=== PATIENT | female | born 1975 | race Caucasian/White ===

== ENCOUNTER 2017-04-16 09:00 | Outpatient (RCR) | payer BC, SELFPAY ==
--- NOTE | 2017-04-16 11:58 | BH.SGPN ---
Service Group Progress Note - Session Psychotherapy Session #1 Date Open:: 04/16/17 Time Started:: 09:04 Time Stopped:: 10:20 Targeted Problem #:: 1 Type of Group:: Process - 8 participants Goal of Group:: The goal of today's group was to check-in with client's mood, stressors, and positives, review homework and introduce topic for the day. Eye Contact:: Fair Motor Activity:: Appropriate Appearance:: Neat, Casual Speech:: Appropriate, Soft Mood:: Anxious, Depressed Affect:: Constricted Thoughts:: Linear, Logical, No evidence of hallucinations/delusions noted Staff Interventions:: Therapist used open-ended questions to elicit information about client's current stressors and mood state. Therapist was supportive by using active listening and reflection.
--- NOTE | 2017-04-16 13:50 | BH.SGPN ---
Service Group Progress Note - Session Psychotherapy Session #2 Date Open:: 04/16/17 Time Started:: 10:30 Time Stopped:: 11:20 Targeted Problem #:: 1 Type of Group:: Illness Management Goal of Group:: To increase understanding how positive and negative forces in life can impact balance in life. Eye Contact:: Good Motor Activity:: Appropriate Appearance:: Neat Speech:: Appropriate, Soft Mood:: Anxious, Depressed Affect:: Constricted Thoughts:: Linear, Logical, No evidence of hallucinations/delusions noted Staff Interventions:: Therapist facilitated group discussion about the various forces of life and helped clients connect the impact they have on balance in life. Therapist led group in an experiential activity in which group members had to work together to balance an object and move it to a designated location. Therapist utilized the activity as a tool to process the challenges connected with balancing various forces. Psychotherapy Session #3 Date Open:: 04/16/17 Time Started:: 11:30 Time Stopped:: 12:20 Targeted Problem #:: 1 Type of Group:: Functional Skills Development Goal of Group:: To identify positive and negative forces in life and identify which forces are helping stability and which forces are contributing to instability. Eye Contact:: Good Motor Activity:: Appropriate Appearance:: Neat Speech:: Appropriate Mood:: Anxious, Depressed Affect:: Constricted Thoughts:: Linear, Logical, No evidence of hallucinations/delusions noted Staff Interventions:: Therapist provided group with an example of a scenario of a person and the individual???s positive and negative forces. Therapist provided each group member with a worksheet in which they were to identify five positive and five negative forces in their life. Therapist processed the activity with the group, helping others connect the impact certain forces have on their life balance.
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
--- NOTE | 2017-04-16 17:28 | BH.MTP ---
[facility] Treatment Plan - Patient Information Program Physician:: Rebecca Calixto Primary Therapist:: Abdon Guerra - Psychiatric Diagnoses Psychiatric Diagnoses:: Bipolar I, most recent episode manic with psychotic features. Anxiety, unspecified Diagnosis Code(s):: F31.2 - Estimated LOS Estimated LOS (in weeks):: 1 Problem/Goal #1 - Problem/Goal #1 Stated Goal:: Client will increase mood stability and decrease depressive symptoms, anhedonia, and suicidal ideation through PHP Description of Barriers: stigma related to recent mental health symptoms, limited support, hx of OCD and difficulty managing irrational thoughts Functional Impact: Recently admitted to psychiatric hospital due to irrational thoughts, erratic mood, and oriental orthodox pre-occupations. - Objectives Objective #1 Stated Objective: Client will work with therapist to develop a crisis plan which includes emergency telephone numbers, 3-4 coping strategies for crisis, lists of supports, positive aspects of life, and motivations Interventions: Therapist will provide patient with safety plan worksheet and work with pt. to develop individualized plan to manage mood during crisis Discharge Criteria: will complete safety plan. Target Date: 04/20/17 Review Date: 04/20/17 Problem/Goal #2 - Problem/Goal #2 Stated Goal:: Stabilize anxiety level while increasing ability to function and decreasing ruminative and intrusive traumatic thoughts on a daily basis through PHP Description of Barriers: stigma related to recent mental health symptoms, limited support, hx of OCD and difficulty managing irrational thoughts Functional Impact: Recently admitted to psychiatric hospital due to irrational thoughts, erratic mood, and oriental orthodox pre-occupations. - Objectives Objective #1 Stated Objective: Identify at least 2-3 negative self-talk messages used to reinforce anxiety and intrusive traumatic feelings and develop 1-2 strategies to reframe or cope with negative self talk Interventions: Therapist will help client identify cognitive distortions and mistaken beliefs about self and replace with more realistic, affirmative messages. Will provide educational handouts. Other inveterventions include group counseling. Discharge Criteria: Client will have achieved this goal when can verbalize at least 2 mistaken beliefs/cognitive distortions and effectively replace those thoughts with affirmative messages Target Date: 04/20/17 Review Date: 04/20/17 Problem/Goal #3 - Problem/Goal #3 Stated Goal:: Will monitor mental status for signs of psychosis or irrtational thoughts. Description of Barriers: stigma related to recent mental health symptoms, limited support, hx of OCD and difficulty managing irrational thoughts Functional Impact: Recently admitted to psychiatric hospital due to irrational thoughts, erratic mood, and oriental orthodox pre-occupations. - Objectives Objective #1 Stated Objective: Client will not experience any bizarre thinking for a period of seven consecutive days. Interventions: Therapist will monitor and utilize reality testing to ensure client is not experiencing bizarre thoughts. Discharge Criteria: Client will have achieved this objective when reports experiencing no bizarre thoughts for seven consecutive days. Target Date: 04/20/17 Review Date: 04/20/17
--- NOTE | 2017-04-17 13:18 | PCM.HP.BLA ---
History and Physical Identifying information Patient is a 41-year-old female who presents to the behavioral medicine IOP status post inpatient psychiatric hospitalization for mood symptoms and psychosis. History is been obtained per interview with patient, discussion with staff, review of chart. Case discussed with treatment team. Chief complaint-mood symptoms, anxiety, recent psychosis History of present illness Patient is a 41-year-old female recently diagnosed with bipolar disorder by her outpatient psychiatrist Dr. Francois who presents to the behavioral medicine [facility] status post inpatient psychiatric hospitalization [facility] for mood symptoms, intrusive obsessive thoughts, and recent advent delusions. She reports 2 similar lifetime episodes likely consistent with tyree with psychotic features. The first was in February 2014 at which time she was admitted to a psychiatric hospital in [place] for increased anxiety, decreased sleep and psychotic thoughts. The second was her recent hospitalization this month for 10 days [facility]. She reports her psychiatric symptoms became worse at the end of March when she began having obsessive thoughts and decreased sleep. She notes that there was one night she did not sleep at all. She was awaking from sleep with panic attacks that she felt had a advent connection. She states that she was in and out of reality. She had advent delusions particularly regarding the end of time and the rapture. She reports that she felt somewhat impulsive and saying things to people that she would not normally say. She felt as if her inhibitions were overall decreased. She had decreased appetite. She notes these symptoms were similar to the episode in 2014. After hospitalization she reports a depressed mood with some passive thoughts of suicide which have now resolved. Suicide plan or intent. No access to firearms. has secured knives and medications. She acknowledges a long-standing history of episodic irritability and depression but frequently felt that it was within the normal range. She reports however that she feels considerably better with the Zyprexa started during her hospitalization and identifies increased mood stabilization compared to one year ago. She reports some obsessive-compulsive behaviors including checking switches and plugs 4-5 times prior to leaving the house. She does not feel that this interferes significantly with daily functioning. Admits to some intrusive thoughts about a friend who drowned her kids in May 2013 and also some intrusive thoughts about recent school shootings. She admits to some generalized ruminative anxiety regarding safety and well-being of her family. Her appetite has returned to normal. She is currently sleeping from 11 PM to 6 AM. She denies history of eating disorder. Her symptoms are complicated by Lyme's disease which can result in low energy and fatigue. Past psychiatric history Patient denies significant psychiatric problems prior to February 2014 when she was admitted in [place] for episode of decreased sleep, mood symptoms and psychosis. Her second psychiatric hospitalization was in April 2017 at [facility] for similar symptoms. An outpatient psychiatrist is Dr. Francois who is recently diagnosed with bipolar disorder. She does not currently have an individual counselor. Substance use history Patient denies smoking cigarettes use of alcohol or illicit drugs. Past medical history ACL repair Lyme's disease Breast cancer 2004-mastectomy and chemotherapy Cholecystectomy 2013 Vitamin D deficiency Denies history of seizure SAB 1 Functional medicine [facility] Allergies-lidocaine/sulfa/Vicodin Current medications Zyprexa 50 mg daily Zoloft 50 mg daily (recently decreased from 100 mg daily) Trazodone 150 mg nightly-not currently taking as feels not needed Vitamin D supplement Magnesium citrate Cortisol retirement village manager-integrative therapeutics B complex [place] vitamin Probiotic Multivitamin [place] [employer] betters Glutathione Inflammatone AL complex Family medical psychiatric history-none known Developmental social history Patient was born and raised in [place] [facility]. She is the eldest of 4 children. She grew up with her parents 2 sisters and one brother. She states growing up was fine. She states it was difficult as she had difficulty being good enough for her father. Her father coached her in basketball when she was in high school. She ultimately obtained to bachelor's degrees one in biology from [employer], and one in nursing from [employer]. She has been to her for 14 years. The marriage is good. Her is a income tax analyst and counselor. They have a son age 5-1/2. She has been a [id number] mother since he was born. Legal history none Mental status exam Vital signs reviewed per nursing database and discussed with nursing. Patient is alert and oriented in no acute distress. She is ambulatory with normal gait and station. She is casually dressed and groomed. She is cooperative with the interview. She has good eye contact. There is no psychomotor agitation or retardation. Mood is depressed. Affect congruent. Speech is clear and of regular rate and volume. Language fluent. Thought process organized. Associations logical. Thought content significant for ruminative anxiety and themes of depression. No current suicidal ideation. Feels able to maintain safety. No homicidal ideation related to detected. No current delusions. Insight to recent advent delusions. Immediate recent and remote memory grossly intact. Attention and concentration are fair to good. Estimated intelligence and fund of knowledge average. Judgment and insight are fair. Physical exam recently conducted per emergency department visit. Records requested and will be reviewed. Labs and testing Records will be requested from recent inpatient hospitalization. Lab work will be requested from recent inpatient hospitalization. Further lab work will be obtained as needed. Diagnosis Bipolar 1 most recent episode manic with psychotic features F31.2 Anxiety unspecified Rule out PTSD Lyme's disease Status post breast cancer Vitamin D deficiency Plan Admit to PHP as the structured setting is necessary to prevent decompensation. Risks benefits alternatives of medications discussed with patient. Patient acknowledges understanding. Continue Zyprexa 15 mg nightly. Continue reduce Zoloft at 50 mg p.o. nightly. Recommend reading calm seas. Continue follow-up with Dr. Francois. Encouraged to establish outpatient counselor. Patient acknowledges understanding and is in agreement with plan. She feels able to maintain safety. She agrees to seek help or emergency care if feeling unsafe to self or others.
--- NOTE | 2017-04-17 14:15 | HP.PCM_ITS ---
History and Physical Identifying information Patient is a 41-year-old female who presents to the behavioral medicine IOP status post inpatient psychiatric hospitalization for mood symptoms and psychosis. History is been obtained per interview with patient, discussion with staff, review of chart. Case discussed with treatment team. Chief complaint-mood symptoms, anxiety, recent psychosis History of present illness Patient is a 41-year-old female recently diagnosed with bipolar disorder by her outpatient psychiatrist Dr. Francois who presents to the behavioral medicine [facility] status post inpatient psychiatric hospitalization [facility] for mood symptoms, intrusive obsessive thoughts, and recent jain delusions. She reports 2 similar lifetime episodes likely consistent with tyree with psychotic features. The first was in February 2014 at which time she was admitted to a psychiatric hospital in [place] for increased anxiety, decreased sleep and psychotic thoughts. The second was her recent hospitalization this month for 10 days [facility]. She reports her psychiatric symptoms became worse at the end of March when she began having obsessive thoughts and decreased sleep. She notes that there was one night she did not sleep at all. She was awaking from sleep with panic attacks that she felt had a jain connection. She states that she was in and out of reality . She had jain delusions particularly regarding the end of time and the rapture. She reports that she felt somewhat impulsive and saying things to people that she would not normally say. She felt as if her inhibitions were overall decreased. She had decreased appetite. She notes these symptoms were similar to the episode in 2014. After hospitalization she reports a depressed mood with some passive thoughts of suicide which have now resolved. Suicide plan or intent. No access to firearms. has secured knives and medications. She acknowledges a long-standing history of episodic irritability and depression but frequently felt that it was within the normal range. She reports however that she feels considerably better with the Zyprexa started during her hospitalization and identifies increased mood stabilization compared to one year ago. She reports some obsessive-compulsive behaviors including checking switches and plugs 4-5 times prior to leaving the house. She does not feel that this interferes significantly with daily functioning. Admits to some intrusive thoughts about a friend who drowned her kids in May 2013 and also some intrusive thoughts about recent school shootings. She admits to some generalized ruminative anxiety regarding safety and well-being of her family. Her appetite has returned to normal. She is currently sleeping from 11 PM to 6 AM. She denies history of eating disorder. Her symptoms are complicated by Lyme's disease which can result in low energy and fatigue. Past psychiatric history Patient denies significant psychiatric problems prior to February 2014 when she was admitted in [place] for episode of decreased sleep, mood symptoms and psychosis. Her second psychiatric hospitalization was in April 2017 at [facility] for similar symptoms. An outpatient psychiatrist is Dr. Francois who is recently diagnosed with bipolar disorder. She does not currently have an individual counselor. Substance use history Patient denies smoking cigarettes use of alcohol or illicit drugs. 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 She is the eldest of 4 children. She grew up with her parents 2 sisters and one brother. She states growing up was fine. She states it was difficult as she had difficulty being good enough for her father. Her father coached her in basketball when she was in high school. She ultimately obtained to bachelor's degrees one in biology from [employer], and one in nursing from [employer]. She has been to her for 14 years. The marriage is good. Her is a architectural intern and counselor. They have a son age 5-1/2. She has been a [id number] mother since he was born. Legal history none Mental status exam Vital signs reviewed per nursing database and discussed with nursing. Patient is alert and oriented in no acute distress. She is ambulatory with normal gait and station. She is casually dressed and groomed. She is cooperative with the interview. She has good eye contact. There is no psychomotor agitation or retardation. Mood is depressed. Affect congruent. Speech is clear and of regular rate and volume. Language fluent. Thought process organized. Associations logical. Thought content significant for ruminative anxiety and themes of depression. No current suicidal ideation. Feels able to maintain safety. No homicidal ideation related to detected. No current delusions. Insight to recent jain delusions. Immediate recent and remote memory grossly intact. Attention and concentration are fair to good. Estimated intelligence and fund of knowledge average. Judgment and insight are fair. Physical exam recently conducted per emergency department visit. Records requested and will be reviewed. Labs and testing Records will be requested from recent inpatient hospitalization. Lab work will be requested from recent inpatient hospitalization. Further lab work will be obtained as needed. Diagnosis Bipolar 1 most recent episode manic with psychotic features F31.2 Anxiety unspecified Rule out PTSD Lyme's disease Status post breast cancer Vitamin D deficiency Plan Admit to PHP as the structured setting is necessary to prevent decompensation. Risks benefits alternatives of medications discussed with patient. Patient acknowledges understanding. Continue Zyprexa 15 mg nightly. Continue reduce Zoloft at 50 mg p.o. nightly. Recommend reading calm seas. Continue follow-up with Dr. Francois. Encouraged to establish outpatient counselor. Patient acknowledges understanding and is in agreement with plan. She feels able to maintain safety. She agrees to seek help or emergency care if feeling unsafe to self or others.
--- NOTE | 2017-04-17 14:16 | BH.DR.ITP ---
Initial Treatment Plan - Patient Information Visit Information: ADMISSION DATE: EXPECTED LOS: 4-6 weeks Diagnoses:: Bipolar disorder F 31.2 - Problems/Symptoms Problem #1:: Mood instability Symptom:: Yenifer, depression, biologic disruption of sleep and appetite, suicidal ideation Problem #2:: Anxiety Symptom:: rumination, panic Problem #3:: Psychosis Symptom:: Recent oriental orthodox delusions
--- NOTE | 2017-04-17 14:36 | BH.COMM ---
Communication Note - Communication with Client Communication Note: Pt was meeting with psychiatrist till 1300 and was not completed with lunch till 1330. Due to running late we were not able to meet for individual session due to time constraits on both of our schedules. We met very briefly to review homework assignment from yesterday, check in on MH status, and provide her with some homework for tonight. Both agreed to follow up tomorrow.
--- NOTE | 2017-04-17 14:49 | BH.COMM_ITS ---
Communication Note - Communication with Client Communication Note: Pt was meeting with psychiatrist till 1300 and was not completed with lunch till 1330. Due to running late we were not able to meet for individual session due to time constraits on both of our schedules. We met very briefly to review homework assignment from yesterday, check in on MH status , and provide her with some homework for tonight. Both agreed to follow up tomorrow.
--- NOTE | 2017-04-17 15:27 | BH.SGPN ---
Service Group Progress Note - Session Psychotherapy Session #2 Date Open:: 04/17/17 - 10 participants Time Started:: 10:21 Time Stopped:: 11:12 Targeted Problem #:: 1 Type of Group:: Illness Management Goal of Group:: To increase understanding of what strengths are and identify individual strengths. Client Response/Progress/Benefit:: Client responded well to session, active participant. Client connected with the quote sharing, if you want to make big changes it takes time and patience. Client agreed with peers that strengths are important positive qualities to recognize, but people often do not have awareness of their strengths. Client identified her personal strengths as having wisdom, problem-solving skills, being mindful, persistent, honest, and good sense of humor. Client stated when she recognizes these strengths, it benefits her mental health. Client appeared to benefit from identifying her personal strengths and how they help client overcome difficult times in life. Progress noted as shown by client's improved mood, but can continue to benefit from challenging negative thoughts. Eye Contact:: Good Motor Activity:: Appropriate Appearance:: Neat Speech:: Soft Mood:: Anxious Affect:: Constricted Thoughts:: Linear, No evidence of hallucinations/delusions noted Staff Interventions:: Therapist facilitated discussion about what are strengths and assisted group members in identifying examples of strengths. Therapist led an activity in which group members were given the opportunity to identify five personal strengths. Therapist assisted clients in connecting the importance of recognizing personal strengths. Psychotherapy Session #3 Date Open:: 04/17/17 - 9 participants Time Started:: 11:20 Time Stopped:: 12:15 Targeted Problem #:: 1 Type of Group:: Functional Skills Development Goal of Group:: To identify what gets in their way of recognizing and utilizing their strengths and identifying ways to make strengths easier to access. Client Response/Progress/Benefit:: Client responded well to session, active group member. Client reported we don't always have awareness of strengths especially, when one is anxious or depressed. Client shared self-doubt, negative thinking, and negative people can keep a person from acknowledging their strengths. Client helped the group develop strategies to combat barriers that making accessing strengths. harder. The strategies included: challenging negative thoughts, journaling progress, and using self-care. Client appeared to benefit from gaining awareness of the barriers that keep client from using her strengths and how to overcome those barriers. Client progressing as evidenced by her implementation of healthy coping skills, but continues to struggle with maintaining mood stability. Eye Contact:: Good Motor Activity:: Appropriate Appearance:: Neat Speech:: Soft Mood:: Anxious Affect:: Constricted Thoughts:: Linear, No evidence of hallucinations/delusions noted Staff Interventions:: Therapist utilized an activity as a tool in helping clients recognize the things that can get in their way from utilizing their strengths and identify alternative strategies to overcome those barriers. Therapist processed the activity, helping others connect challenges that keep them from recognizing and using their strengths. Therapist helped clients connect the importance of utilizing supports to build personal strengths and ways to challenge negative thoughts that prevent clients from acknowledging their strengths. Therapist provided support by using active listening and providing feedback.
--- NOTE | 2017-04-18 10:26 | BH.SGPN ---
Service Group Progress Note - Session Psychotherapy Session #1 Date Open:: 04/18/17 - 5 participants Time Started:: 09:05 Time Stopped:: 10:05 Targeted Problem #:: 1 Type of Group:: Process Goal of Group:: The goal of today's group was to check-in with client's mood, stressors, and positives, review homework and introduce topic for the day. Client Response/Progress/Benefit:: Client responded well to session, providing supportive statements to peers. Client reports feeling more positive today as client shared she has been trying to accept what is in her control and choose my emotions. Client stated she is getting used to the routine of coming to PHP every day which is helping client as well. Client reported she is struggling with finding time to spend with her as client shared I get tired before everyone else, so we don't really have family time as much. Client appeared to benefit from seeing a benefit from incorporating healthy coping skills such as thought challenge. Client seems to be progressing with implementing healthy coping strategies, but can continue to benefit for communicating mental health needs with her supports and maintaining self-care. Eye Contact:: Good Motor Activity:: Appropriate Appearance:: Neat Speech:: Soft Mood:: Anxious Affect:: Constricted Thoughts:: Linear, No evidence of hallucinations/delusions noted Staff Interventions:: Therapist used open-ended questions to elicit information about client's current stressors and mood state. Therapist was supportive by using active listening and reflection.
--- NOTE | 2017-04-18 12:15 | BH.SGPN ---
Service Group Progress Note - Session Psychotherapy Session #1 Date Open:: 04/18/17 Time Started:: 09:06 Time Stopped:: 10:15 Targeted Problem #:: 1 Type of Group:: Process - 9 participants Goal of Group:: The goal of group was to check-in on clients mood, stressors and positives and introduce the topic of the day. Client Response/Progress/Benefit:: Client an active participant and willing to engage in group discussion. She relfected upon her first day in PHP program, indicating that it had gone okay but that she had struggled with feeling guilty for being away from her 5 y/o son. Client went on to explain that his grandparents have been caring for him while client was in the hospital and during the PHP program. She discussed that they have been struggling to re-connect since she returned from inpatient hospitalization last week. Client further explained she is finding herself becoming less patient with his temper tantrums but is trying to remember to apply the calming skills learned during hospitalization. She reported I'm just taking it one day at a time and indicates that this has been helpful in working with her son as well as decreasing her anxiety related to maintaining the house. Client was receptive to feedback and appeared to benefit from fellow participants expressing similar struggles regarding parenting and managing mental health symptoms. Recommended continued PHP to further improve internal skills such as positive self talk, reframing, and setting small goals, as well as to maintain current stability. Eye Contact:: Fair Motor Activity:: Appropriate Appearance:: Casual Speech:: Appropriate Mood:: Anxious, Dysthymic Affect:: Constricted Thoughts:: Linear, Logical, No evidence of hallucinations/delusions noted Staff Interventions:: Therapist used open-ended questions to elicit information about client's current stressors and mood state. Therapist was supportive by using active listening and reflection. Therapist utilized a quote related to anger as an aid in introducing the topic of the day and facilitated discussion of quote.
--- NOTE | 2017-04-18 12:46 | BH.SGPN_ITS ---
Service Group Progress Note - Session Psychotherapy Session #1 Date Open:: 04/18/17 Time Started:: 09:06 Time Stopped:: 10:15 Targeted Problem #:: 1 Type of Group:: Process - 9 participants Goal of Group:: The goal of group was to check-in on client?s mood, stressors and positives and introduce the topic of the day. Client Response/Progress/Benefit:: Client an active participant and willing to engage in group discussion. She relfected upon her first day in PHP program, indicating that it had gone okay but that she had struggled with feeling guilty for being away from her 5 y/o son. Client went on to explain that his grandparents have been caring for him while client was in the hospital and during the PHP program. She discussed that they have been struggling to re- connect since she returned from inpatient hospitalization last week. Client further explained she is finding herself becoming less patient with his temper tantrums but is trying to remember to apply the calming skills learned during hospitalization. She reported I'm just taking it one day at a time and indicates that this has been helpful in working with her son as well as decreasing her anxiety related to maintaining the house. Client was receptive to feedback and appeared to benefit from fellow participants expressing similar struggles regarding parenting and managing mental health symptoms. Recommended continued PHP to further improve internal skills such as positive self talk, reframing, and setting small goals, as well as to maintain current stability. Eye Contact:: Fair Motor Activity:: Appropriate Appearance:: Casual Speech:: Appropriate Mood:: Anxious, Dysthymic Affect:: Constricted Thoughts:: Linear, Logical, No evidence of hallucinations/delusions noted Staff Interventions:: Therapist used open-ended questions to elicit information about client's current stressors and mood state. Therapist was supportive by using active listening and reflection. Therapist utilized a quote related to anger as an aid in introducing the topic of the day and facilitated discussion of quote.
--- NOTE | 2017-04-18 13:52 | BH.SGPN ---
Service Group Progress Note - Session Psychotherapy Session #2 Date Open:: 04/18/17 Time Started:: 10:15 Time Stopped:: 11:10 Targeted Problem #:: 1 Type of Group:: Illness Management Goal of Group:: The goal of group was to increase understanding of coping strategies and impact problems have on self. Another goal was to practice utilizing coping skills in the moment. Eye Contact:: Good Motor Activity:: Appropriate Speech:: Appropriate Mood:: Anxious Affect:: Constricted Thoughts:: Linear, Logical, No evidence of hallucinations/delusions noted Staff Interventions:: Therapist facilitated the group discussion about coping strategies. Therapist group and activity challenge them to work together in utilize healthy coping skills in the moment. Therapist utilized the activity as a tool to process what it feels like when dealing with problems and what strategies they used to cope throughout activity. Psychotherapy Session #3 Date Open:: 04/18/17 Time Started:: 11:20 Time Stopped:: 12:15 Targeted Problem #:: 1 Type of Group:: Functional Skills Development Goal of Group:: The goal of group was to increase client???s ability to recognize the different between an internal and external coping strategy. Another goal was to increase client???s self-awareness on their use of coping strategies and increase repertoire of healthy coping strategies. Eye Contact:: Good Motor Activity:: Appropriate Appearance:: Casual Speech:: Appropriate Mood:: Anxious Affect:: Constricted Thoughts:: Linear, Logical, No evidence of hallucinations/delusions noted Staff Interventions:: Therapist facilitated discussion about the different types of coping skills. Therapist led group in an activity in which group members were asked to brainstorm coping strategies that fit in each coping skill category. Therapist led a discussion about whether the coping strategies identified were healthy or unhealthy.
--- NOTE | 2017-04-18 16:54 | BH.MDN_ITS ---
Multi-Disciplinary Note - Note 60-min Individual Time Started:: 12:30 Date: 04/18/17 Purpose of session/treatment goals addressed:: Used the session to review progress in PHP. Addressed treatment goals 1 and 2. Eye Contact:: Fair Motor Activity:: Appropriate Appearance:: Neat Speech:: Appropriate Mood:: Anxious, Depressed Affect:: Congruent Thoughts:: Linear, Logical, No evidence of hallucinations/delusions noted Staff Interventions:: Provided education on cognitive distortions, self-care, and reviewed thought record. Client Response:: Pt reports that she feels like she is continuing to improve. Reports increased confidence in herself and her ability to manage her thoughts and mood. Also reports that she is getting more accustomed to the PHP program and her peers. Reports that she would like to develop new habits which include more positive self-talk, being able to recognize and manage irrational thoughts , and increase her coping skills for anger and irritability. Discussed negative thoughts which effect her daily functioning. Showed insight into setting boundaries with child and expectation with spouse. She was attentive during education on cognitive distortions and self-care. Reviewed her thought record. Risks/Concerns:: No risks or concerns noted. Denies any suicidal thoughts or thoughts of hurting others. States that she feels more in control of her thoughts. Progress Toward Goals/Plan:: Pt reports progress in the past few days. Reports decrease in intensiy, frequency, and duration of anxiety, depression, negative thoughts, and intrusive thoughts. Appears motivated during groups and is completing all assigned tasks. Plan is to continue with PHP to maintain safety, prevent decompensation, and stabilize mood. Time Stopped:: 13:30
--- NOTE | 2017-04-19 11:21 | BH.SGPN ---
Service Group Progress Note - Session Psychotherapy Session #1 Date Open:: 04/19/17 Time Started:: 09:06 Time Stopped:: 10:20 Targeted Problem #:: 1 Type of Group:: Process - 9 participants Goal of Group:: The goal of today's group was to check-in with client's mood, stressors, and positives, review homework and introduce topic for the day. Staff Interventions:: Therapist used open-ended questions to elicit information about client's current stressors and mood state. Therapist was supportive by using active listening and reflection.
--- NOTE | 2017-04-19 13:36 | BH.SGPN_ITS ---
Service Group Progress Note - Session Psychotherapy Session #2 Date Open:: 04/19/17 - 10 group members Time Started:: 10:25 Time Stopped:: 11:15 Targeted Problem #:: 1 Type of Group:: Illness Management Goal of Group:: To increase understanding of importance of boundaries and the different ways of setting boundaries (permeable, rigid, and flexible). Client Response/Progress/Benefit:: Client responded well to session, providing input to discussion. Client appeared to connect with the quote,sharing ?setting boundaries helps you learn and grow.? Client helped the group identify the characteristics of each boundary type as well as the pros and cons. Client shared rigid boundaries protects one from toxic people, but it also keeps positive supports away. Client stated being flexible is important as it allows a person to gain new ideas and supports without compromising one?s beliefs. Client appeared to benefit from learning the importance of boundary setting. Progress noted in client?s increased awareness and communication in group, but can continue to benefit from challenging cognitive distortions. Eye Contact:: Good Motor Activity:: Appropriate Appearance:: Neat Speech:: Appropriate Mood:: Anxious Affect:: Flat Thoughts:: Linear, No evidence of hallucinations/delusions noted Staff Interventions:: Therapist facilitated group discussion about defining boundaries. Therapist led discussion about importance of boundaries, assisting group members with identifying the impact of healthy and unhealthy boundaries. Therapist educated the group about the three different ways of setting boundaries and led discussion about each one. Therapist assisted clients with identifying the costs and benefits to the three different styles of boundary setting and how each style can impact mental health as well as relationships. Psychotherapy Session #3 Date Open:: 04/19/17 - 9 group members Time Started:: 11:25 Time Stopped:: 12:20 Targeted Problem #:: 1 Type of Group:: Functional Skills Development Goal of Group:: Increase awareness of current boundary style, identifying impact current way of setting boundaries has on mental health as well as relationships. Client Response/Progress/Benefit:: Client responded well to session, participating when prompted. Client created a visual representation of her boundaries, sharing ?my castle has a lot of windows, but only one door.? Client stated she feels comfortable with listening to others thoughts and emotions, but is closed off when it comes to sharing hers. Client reported she is rigid with her emotions as client does not trust others easily and client does not like to feel not in control. Client stated she would like to become more flexible with her emotional boundaries, especially with communicating her needs. Client appeared to benefit from increasing awareness of how rigid boundaries impact client's overall well-being. Client to continue PHP to prevent decompensation and promote emotional regulation. Eye Contact:: Good Motor Activity:: Appropriate Appearance:: Neat Speech:: Appropriate Mood:: Anxious Affect:: Flat Thoughts:: Linear, No evidence of hallucinations/delusions noted Staff Interventions:: Therapist provided the group member with a wide array of supplies, asking each group member to create a castle that would represent the boundaries they currently have in place. The expressive activity was used as a tool to help increase client?s self-awareness of their boundaries. Therapist processed each group member?s castle, inquiring what style the group member currently uses most frequently and how current boundary style impacts his/her mental health and relationships. Therapist provided support by using reflective listening and giving feedback.
--- NOTE | 2017-04-19 14:48 | BH.MDN ---
Multi-Disciplinary Note - Note 60-min Individual Time Started:: 12:15 Date: 04/19/17 Purpose of session/treatment goals addressed:: Review progress in PHP program. Addressed treatment plan goals 1,2 and 3. Eye Contact:: Fair Motor Activity:: Appropriate Appearance:: Neat Speech:: Appropriate Mood:: Anxious Affect:: Congruent Thoughts:: Linear, Logical, No evidence of hallucinations/delusions noted Staff Interventions:: Utilized NC techniques to encourage change and decrease stigma related to MH symptoms. Gave pt additional educational handouts on self-talk and developing crisis plan. Client Response:: Pt continues to report that she is managing her thoughts and mood well. Denies any intrusive thoughts about hurting herself or others. 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 SHe is continuing to follow through with thought record and reviewing cognitive distortions. She is able to identify some through reframing and coping skills to manage anxiety, depression, and instrusive thoughts. Able to identify 3 negative self-talk messages through her thought record. Was also able to reframe thoughts with some guidance from therapist. Risks/Concerns:: No risks or concerns noted. Progress Toward Goals/Plan:: Continues to make progress. No signs of psychosis or confucianist pre-occupation noted in individual or group counseling sessions. Denies any instrusive thoughts about hurting self or others. No psychosis noted in past 6 days. She has met treatment goal 2 and 3. We worked this session on developing her individualized crisis plan for treatment goal 1. Overall reports decreased anxiety and depressive symptoms. Reports decrease in intensitity, frequency, and duration of intrusive thoughts and feels that her mood is stable. More in control of thoughts and actions. Stigma associated with recent episode is decreasing as well. Will continue with PHP tomorrow. Will discuss progress with treatment team with tenative plan to step down to IOP after tomorrow.
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
--- NOTE | 2017-04-20 14:40 | BH.COMM ---
Communication Note - Communication with Client Communication Note: Pt had to leave PHP early today as she had a medical appointment.
--- NOTE | 2017-04-20 14:42 | BH.SGPN_ITS ---
Service Group Progress Note - Session Psychotherapy Session #2 Date Open:: 04/20/17 Time Started:: 10:20 Time Stopped:: 11:10 Targeted Problem #:: 1 Type of Group:: Illness Management - 7 participants Goal of Group:: To increase understanding of fear and explore the negative impact fear of failure can have on mental health and decision making. Client Response/Progress/Benefit:: Client responded positively to session and indicated connecting with the topic for today's group, Fear of Failure. She was actively engaged in both the discussion and activity portions of the group. Client reflected with the group upon the potential mental health impacts fear of failure may have as well as what defines failure. She discussed that for her failure means falling short of the expectations she has set for herself. She appeared to benefit from participating in the group activity as this had challenged her to face potential failure at various points throughout. Client displayed progress in her ability to openly engage with the group as well as begin to apply treatment content discussed to her own experiences AEB reflecting upon how not meeting her own expectations often causes her increased irritability and anxiety. Client recommended remaining in IOP program to continue to challenge use of minimization and distorted thinking patterns regarding her perception and expectations of self. Eye Contact:: Good Motor Activity:: Appropriate Appearance:: Casual Speech:: Appropriate Mood:: Euthymic, Anxious Affect:: Congruent Thoughts:: Linear, Logical, No evidence of hallucinations/delusions noted Staff Interventions:: Therapist facilitated discussion about fear and impact fear of failure can have. Therapist led group in an experiential activity in which client?s would fail numerous times throughout, but were given the opportunity to try again. Therapist led the processing of the activity and assisted clients with connecting how fear of failure impacted their decision making during the activity.
--- NOTE | 2017-04-23 12:25 | BH.DS_ITS ---
Discharge Summary - Demographics Date of Admission:: 04/16/17 Discharge Date: 04/20/17 Presenting Problems at Admission:: Pt is a 44 year old female with a history of Bipolar. Recent psychiatric admission to [facility]. Discharge Diagnoses:: Bipolar 1 with psychotic features F31.2. Anxiety, unspecified Reason for Discharge:: No longer meets criteria for [facility] level of care. Completed treatment plan goals and reports decrease in severity, duration, and frequency of instrusive thoughts, SI, and anxiety. - Treatment Progress During Treatment & Response: Continues to make progress. Pt appears motivated and has been consistenly attending and participating in treatment. No signs of psychosis or religion pre-occupation noted in individual or group counseling sessions during PHP. Denies any instrusive thoughts about hurting self or others. No psychosis noted in past 6 days. She has met treatment goal 2 and 3. Has also worked on individualized crisis plan. Overall reports decreased anxiety and depressive symptoms. Reports decrease in intensitity, frequency, and duration of intrusive thoughts and feels that her mood is stable. More in control of thoughts and actions. Stigma associated with recent episode is decreasing as well. Discussed progress with pt and treatment team with plan to step down to [facility] next week. Issues Still to be Addressed:: Continues to report obessive and instrusive thoughts. Continues to report anxiety and depressive symptoms as well as some fear associated with relapse back into psychosis. Discharge Recommendations/Instructions:: Recommended to step down to [facility] level of care to maintain gains, prevent decompensation, and further stabilize mood. Pt reports clearer thoughts and increased confidence in coping however would benefit from continued support, increased coping skills, and medication management. Discharge Handout: Complete Discharge Handout with client on aftercare options and continuity of care.
--- NOTE | 2017-04-30 10:25 | BH.SGPN_ITS ---
Service Group Progress Note - Session Psychotherapy Session #1 Date Open:: 04/17/17 Time Started:: 09:06 Time Stopped:: 10:15 Targeted Problem #:: 1 Type of Group:: Process - 9 participants Goal of Group:: The goal of today's group was to check-in with client's mood, stressors, and positives, review homework and introduce topic for the day. Client Response/Progress/Benefit:: Client second day in PHP program and still adjusting to the dynamics of the group. She was receptive of the support and encouragement provided by the group and appeared to respond well to session. Client openly discussed struggling to maintain focus as her mind keeps wandering back to thoughts of what she needs to be getting done back at home. Client went on to share that she has been experiencing some difficulty in re- connecting with her 3 year-old son since she discharged from an inpatient unit earlier last week. She discussed frustration with his recent increase in stubbornness. Client appeared to benefit from the supportive feedback provided by several participants whom could relate as they have small children as well. Client identified trying to take things one step at a time and shared feeling as though she is beginning to return to her baseline prior to the events resulting in hospitalization. Eye Contact:: Fair Motor Activity:: Appropriate Appearance:: Casual Speech:: Appropriate Mood:: Euthymic, Anxious Affect:: Congruent Thoughts:: Linear, Logical, No evidence of hallucinations/delusions noted Staff Interventions:: Therapist used open-ended questions to elicit information about client's current stressors and mood state. Therapist was supportive by using active listening and reflection.
== END 2017-04-20 14:00 | disposition home or self-care (01) ==
LOC: BHPHP 09:00
PROVIDERS: Visit Provider Psychiatry & Neurology Psychiatry
DX: F31.2 Bipolar disorder, current episode manic severe with psychotic features (principal); F41.9 Anxiety disorder, unspecified; A69.20 Lyme disease, unspecified; E55.9 Vitamin D deficiency, unspecified; Z85.3 Personal history of malignant neoplasm of breast; Z79.899 Other long term (current) drug therapy
CPT/HCPCS: H0035; 90834; 90837; G0410

== ENCOUNTER 2017-04-24 09:00 | Outpatient (RCR) | payer BC, SELFPAY ==
--- NOTE | 2017-04-24 14:52 | BH.SGPN ---
Service Group Progress Note - Session Psychotherapy Session #1 Date Open:: 04/24/17 Time Started:: 09:05 Time Stopped:: 10:00 Type of Group:: Process - 8 group members Goal of Group:: The goal of today's group was to check-in with client's mood, stressors, and positives, review homework and introduce topic for the day. Client Response/Progress/Benefit:: Pt participate only when prompted however was attentive. Emotion for today was confident. Shared with the group that her weekend went well. She stated that she had a panic attack last evening with instrusive thoughts and fear related to having a relapse (psychosis). She stated that she was really fearful. She utilized her thought reframing skills as beleives that she was able to manage the panic attack and feel more in control. Progress noted as she was able to manage overwhelming thoughts. Benefited from group support and encouragment. Plan is to continue in IOP to prevent decompensation, decrease instrusive thoughts, and decrease anxiety. Eye Contact:: Fair Motor Activity:: Appropriate Appearance:: Neat Speech:: Appropriate Mood:: Euthymic Affect:: Full Thoughts:: Linear, Logical, No evidence of hallucinations/delusions noted Staff Interventions:: Therapist used open-ended questions to elicit information about client's current stressors and mood state. Therapist was supportive by using active listening and reflection.
--- NOTE | 2017-04-24 16:10 | BH.SGPN_ITS ---
Service Group Progress Note - Session Psychotherapy Session #2 Date Open:: 04/24/17 Time Started:: 10:15 Time Stopped:: 11:08 Targeted Problem #:: 1 Type of Group:: Illness Management - 8 group members Goal of Group:: To increase understanding of what conflict is and increase awareness of how group members manage conflict. Client Response/Progress/Benefit:: Client contributed positively to discussion and listened attentively to others. Client that oftentimes when she thinks about conflict she thinks about negativity and aggressiveness, but is able to see conflict can be different based on how one gera with the situation. client reported she uses all four conflict resolution styles, it just depends on the situation and person. Recognized she tends to be more competitive when in conflict with her , which results in him not sharing how he feels because doesn't want to deal with her aggressiveness. Client seemed to benefit from increasing awarness of how her conflict resolution style can impact her. Eye Contact:: Good Motor Activity:: Appropriate Appearance:: Neat Speech:: Appropriate Mood:: Euthymic, Anxious Affect:: Congruent Thoughts:: Linear, Logical, No evidence of hallucinations/delusions noted Staff Interventions:: Therapist facilitated discussion about conflict and conflict resolution. Therapist led group in an activity in which group members had to identify their initial response to conflict and how their response changes based on different situations. Therapist assisted clients with connecting the impact current conflict style has on their mental health. Psychotherapy Session #3 Date Open:: 04/24/17 Time Started:: 11:18 Time Stopped:: 12:15 Targeted Problem #:: 1 Type of Group:: Functional Skills Development - 9 group members Goal of Group:: To identify what contributes positively and negatively to conflict and appropriate ways to manage conflict with others. Client Response/Progress/Benefit:: Client contributed to discussion and listened attentively to others. Client worked cooperatively with others during challenge activity, making effort to be collaborate with peers. Client identified she would use today's topic in her daily life by: picking her battles , being willing to forgive, being will to compromise, knowing when to walk away and being mindful of her reaction during conflict. Client seemed to benefit form learning various strategies for resolving conflict in healthy manner. Eye Contact:: Good Motor Activity:: Appropriate Appearance:: Neat Speech:: Appropriate Mood:: Euthymic, Anxious Affect:: Congruent Thoughts:: Linear, Logical, No evidence of hallucinations/delusions noted Staff Interventions:: Therapist facilitated group activity in which group members were provided with materials and had to eliminate certain items with consensus from group. Therapist processed activity, helping clients connect throughout activity strategies each person used to manage conflict. Therapist led discussion about what contributes to conflict in a positive or negative manner. Therapist facilitated discussion about conflict resolution strategies and provided group member with a handout about effective ways to manage conflict.
--- NOTE | 2017-04-25 08:39 | BH.COMM ---
Communication Note - Communication with Client Communication Note: called off due to weather
--- NOTE | 2017-04-26 15:44 | BH.SGPN ---
Service Group Progress Note - Session Psychotherapy Session #1 Date Open:: 04/26/17 Time Started:: 09:10 Time Stopped:: 10:00 Type of Group:: Process - 6 group members Goal of Group:: The goal of today's group was to check-in with client's mood, stressors, and positives, review homework and introduce topic for the day. Client Response/Progress/Benefit:: Pt was attentive and spoke when prompted. Emotion for the today is anxious. Shared with the group that she had met with her outpatient psychiatrist yesterday and they stopped her Zoloft. Reports some fear associated with this. Concerns that she will relapse of that stopping this medication will increase her thoughts, depression, and anxiety. She was able to verbalize the reason her psychiatrist stopped the medication (bipolar dx) and the psychiatrist's rationale. Admited that this is an example of how her thinking can get overwhelming and obessive. Group provided support. Displaying cognitive distortions and a what if thinking which is leading to ruminations. Will continue with IOP to prevent furhter decompensation, improve functioning, and learn ways to manage instrusive thoughts. Eye Contact:: Good Motor Activity:: Appropriate Appearance:: Casual Speech:: Appropriate Mood:: Anxious Affect:: Congruent Thoughts:: Linear, Logical, No evidence of hallucinations/delusions noted Staff Interventions:: Therapist used open-ended questions to elicit information about client's current stressors and mood state. Therapist was supportive by using active listening and reflection.
--- NOTE | 2017-04-26 16:36 | BH.SGPN_ITS ---
Service Group Progress Note - Session Psychotherapy Session #2 Date Open:: 04/26/17 Time Started:: 10:13 Time Stopped:: 11:13 Targeted Problem #:: 1 Type of Group:: Illness Management - 7 participants Goal of Group:: To increase understanding of a crisis and improve client?s awareness of personal warning signs before crisis. Eye Contact:: Good Motor Activity:: Appropriate Appearance:: Casual Speech:: Appropriate Mood:: Euthymic Affect:: Congruent Thoughts:: Linear, Logical, No evidence of hallucinations/delusions noted Staff Interventions:: Therapist facilitated group discussion about defining a crisis and specifying various events that are considered a crisis. Therapist led group in an activity in which group members had to identify their thoughts and emotions attached to being in a crisis. Therapist provided support by using active listening and providing feedback. Psychotherapy Session #3 Date Open:: 04/26/17 Time Started:: 11:22 Time Stopped:: 12:24 Targeted Problem #:: 1 Type of Group:: Functional Skills Development - 7 participants Goal of Group:: To increase awareness of warning signs before a crisis and identify interventions/coping strategies that would help clients proactively manage potential crises. Eye Contact:: Good Motor Activity:: Appropriate Appearance:: Casual Speech:: Appropriate Mood:: Euthymic Affect:: Congruent Thoughts:: Linear, Logical, No evidence of hallucinations/delusions noted Staff Interventions:: Therapist led the group in discussion about identifying personal warning signs before a crisis and importance of being aware of those signs. Therapist provided the group with various types of items and asked each group member to select five items that represent something that would be helpful in managing their warning signs of a crisis. Therapist facilitated group proc essing of the crisis emergency kits each group member created. Therapist used open-ended questions to encourage elaboration of each item chosen for their kit. Therapist helped clients connect how the crisis emergency kit could help be a crisis prevention tool.
--- NOTE | 2017-04-27 10:58 | BH.MTP ---
Master Treatment Plan - Patient Information Program Physician:: Rebecca Dai Primary Therapist:: Abdon Guerra - Psychiatric Diagnoses Psychiatric Diagnoses:: Bipolar, I, most recent episode manic with psychotic features. Anxiety, unspecified Diagnosis Code(s):: F31.2 - Estimated LOS Estimated LOS (in weeks):: 6 Problem/Goal #1 - Problem/Goal #1 Stated Goal:: Client will increase mood stability and decrease depressive symptoms, anger/irritability, and suicidal ideation due to Bipolar I through Intensive Outpatient Program. Description of Barriers: Stigma related to mental health symptoms, Hx of OCD and difficulty managing irrational thoughts. Functional Impact: Recent admission to psychiatric hospital due to MH symptoms - Objectives Objective #1 Stated Objective: Client will reduce depression, suicidal thinking, and impulsivity by identifying 2-3 triggers for mood changes and at least 3 ways to cope with these. Interventions: Therapist will help client through individual and family work to identify what may trigger mood swings. Therapist will encourage the use of a mood log, or another way to track moods to help client intervene before mood worsens. Discharge Criteria: Client will have met this goal when mood is stable, is able to identify at least 2 triggers, and 2 coping skills to use. Client will also be able to identify when should use these triggers. Target Date: 06/08/17 Review Date: 05/25/17 Objective #2 Stated Objective: Client will identify 2-3 triggers, warning signs, or irrational thoughts which preceed elevated mood. Interventions: Therapist will help client develop insight into mental health trigger, but also help find ways to communicate those triggers with support system. Family counseling. Discharge Criteria: Client will have achieved this objective when able to verbalize and has utilized at least 2 coping strategies that have helped stabilize mood. Target Date: 06/08/17 Review Date: 05/25/17 Problem/Goal #2 - Problem/Goal #2 Stated Goal:: Stabilize anxiety level while increasing ability to function on daily basis due to Adjustment issues through Intensive Outpatient Services. Description of Barriers: Stigma related to mental health symptoms, Hx of OCD and difficulty managing irrational thoughts. Functional Impact: Recent admission to psychiatric hospital due to MH symptoms - Objectives Objective #1 Stated Objective: Client will learn and implement 2-3 calming skills to reduce overall anxiety and manage anxiety symptoms. Interventions: Therapist will teach client calming/relaxation skills and assign client homework which practices relaxation skills daily Discharge Criteria: Client will have achieved this goal when can verbalize at least 2 calming skills and implement those skills. Target Date: 06/08/17 Review Date: 05/25/17 Objective #2 Stated Objective: Client will identify 2-3 irrational and anxiety producing thinking patterns and be able to challenge and replace negative thoughts. Interventions: Therapist will assist client in identifying irrational and anxiety producing thinking patterns and provide client with education on cognitive distortion, mindfullness, thought- stopping, through reframing, and developing realistic affirmations. Discharge Criteria: Client will have met this objective when can identify at least two negative thinking patterns and be able to defeat irrational and anxious thoughts. Target Date: 06/08/17 Review Date: 05/25/17
--- NOTE | 2017-04-27 12:34 | BH.NOTE ---
BH: Inpatient Note - Notes Behavioral Health Inpatient Note: Client requested to discuss recent medications changes. She states that she was taken off of the Zoloft (50mg daily) by Dr. Francois earlier this week due to a suspected diagnosis of bipolar disorder. She is still on the Zyprexa (15mg QHS), but is wary given her recent psychotic episode that led to her being hospitalized which occurred when she was off of the Zoloft. This RN provided emotional support and encouraged the patient to contact Dr. Francois's office or inform staff here if symptoms become exacerbated. Client has been off the Zoloft for 2 days now. She denies any increased agitation, obsessive or compulsive thoughts, rumination, or suicidal thoughts. Client identifies that her is good about monitoring changes in her mood, and often notices them before she does. WALTER GutierrezN, RN
--- NOTE | 2017-04-27 14:32 | BH.MDN ---
Multi-Disciplinary Note - Note 45-min Individual Time Started:: 11:15 Date: 04/27/17 Purpose of session/treatment goals addressed:: Assess progress and symptoms. Finalize IOP treatment plan. Eye Contact:: Fair Motor Activity:: Appropriate Appearance:: Casual Speech:: Appropriate Mood:: Anxious, Depressed Affect:: Congruent Thoughts:: Linear, Logical, No evidence of hallucinations/delusions noted Staff Interventions:: Utilized ND techniques to elicit change behaviors. Assited pt is goal-setting for the weekend. Client Response:: Pt shared some recent positives as well as some concerns and challenges. She reports increased communication and support from her . She also reports that she is begining to slowly utilize some skills learned in groups. She reports concerns and fears that she will get overwhelmed with stressors during the day which will increase her vulnerability and cause her to be on edge. She is fearful of stress causing another psychotic episode. Worried that she will not be able to stop her obsessive thoughts. Denies any current obsessive thoughts. She was able to identify some goals that she wanted to accomplish this weekend to ease some stress and increase support and communication with family. She wrote down her goals and we worked togehter to develop a plan. She also reviewed her crisis plan again with this therapist and was encouraged to go over this plan with her as well. Risks/Concerns:: No risks or concerns noted. Denies any suicidal ideations, plan, or intent. Denies any intrusive thoughts. Progress Toward Goals/Plan:: Pt continues to make progress. Motivated and engaged in groups and individual counseling. Has had two weeks of stability which she attributes to medications and IOP program. Continues to have fears of relpase and struggles at times to manage instrustive thoughts. Reports that she will at times find herself ruminating or obsessing however is using skills learned to better manage thoughts. Is increasing her awareness of cognitive distortions and self-talk. Plan is to continue in IOP to maintain safety, prevent decompensation, and improve daily functioning.
--- NOTE | 2017-04-27 14:47 | BH.SGPN_ITS ---
Service Group Progress Note - Session Psychotherapy Session #3 Date Open:: 04/27/17 - group members Time Started:: 11:25 Time Stopped:: 12:15 Targeted Problem #:: 1 Type of Group:: Functional Skills Development Goal of Group:: To identify personal barriers that get in the way of accomplishing tasks and identify internal and external resources to help overcome difficult situations. Client Response/Progress/Benefit:: Client responded well to session, providing good insight. Client reported the activity helped client realize ?nothing is really impossible if we are willing to ask for help.? Client shared gaining awareness of her own negative thinking and being willing to admit how much she needed IOP, an ?impossible? obstacle she has overcome. Client identified her personal barriers as negative thinking and not always taking time for self- care. Client helped the group identify internal and external resources to help overcome her barriers. Client reported being willing to try reframing thoughts, writing daily progress, and communicating with her supports. Client seemed to benefit from gaining awareness of internal and external resources to help overcome barriers. Progress noted in client?s positive outlook and application of coping skills, but can continue to benefit from utilizing self-care strategies. Eye Contact:: Good Motor Activity:: Appropriate Appearance:: Neat Speech:: Appropriate Mood:: Euthymic Affect:: Constricted Thoughts:: Linear, No evidence of hallucinations/delusions noted Staff Interventions:: Therapist facilitated discussion about internal and external resources and helped clients connect various internal resources they use. Therapist provided group members with a handout that gave information about various external resources the clients could utilize to get support. Therapist gave clients a worksheet in which they were asked to identify several barriers that get in their way to overcoming difficult situations. They also were asked to identify several internal and external resources they could use when needed.
--- NOTE | 2017-04-27 14:51 | BH.MDN_ITS ---
Multi-Disciplinary Note - Note 45-min Individual Time Started:: 11:15 Date: 04/27/17 Purpose of session/treatment goals addressed:: Assess progress and symptoms. Finalize IOP treatment plan. Eye Contact:: Fair Motor Activity:: Appropriate Appearance:: Casual Speech:: Appropriate Mood:: Anxious, Depressed Affect:: Congruent Thoughts:: Linear, Logical, No evidence of hallucinations/delusions noted Staff Interventions:: Utilized [place] techniques to elicit change behaviors. Assited pt is goal-setting for the weekend. Client Response:: Pt shared some recent positives as well as some concerns and challenges. She reports increased communication and support from her . She also reports that she is begining to slowly utilize some skills learned in groups. She reports concerns and fears that she will get overwhelmed with stressors during the day which will increase her vulnerability and cause her to be on edge. She is fearful of stress causing another psychotic episode. Worried that she will not be able to stop her obsessive thoughts. Denies any current obsessive thoughts. She was able to identify some goals that she wanted to accomplish this weekend to ease some stress and increase support and communication with family. She wrote down her goals and we worked togehter to develop a plan. She also reviewed her crisis plan again with this therapist and was encouraged to go over this plan with her as well. Risks/Concerns:: No risks or concerns noted. Denies any suicidal ideations, plan , or intent. Denies any intrusive thoughts. Progress Toward Goals/Plan:: Pt continues to make progress. Motivated and engaged in groups and individual counseling. Has had two weeks of stability which she attributes to medications and IOP program. Continues to have fears of relpase and struggles at times to manage instrustive thoughts. Reports that she will at times find herself ruminating or obsessing however is using skills learned to better manage thoughts. Is increasing her awareness of cognitive distortions and self-talk. Plan is to continue in IOP to maintain safety, prevent decompensation, and improve daily functioning.
--- NOTE | 2017-04-27 15:22 | BH.SGPN ---
Service Group Progress Note - Session Psychotherapy Session #1 Date Open:: 04/27/17 Time Started:: 09:08 Time Stopped:: 10:10 Type of Group:: Process - 8 group members Goal of Group:: The goal of today's group was to check-in with client's mood, stressors, and positives, review homework and introduce topic for the day. Client Response/Progress/Benefit:: Attentive during group session. Typically only speaks when prompted. Emotions for today is anxious. Continues to ruminate on being taken off Zoloft this week and how this might led to a relapse or decompensation. Group provided support and helped reframe thoughts. Shared that her was very supportive yesterday and went out of his way to help with some household tasks. She discuss how this support helped with her mood. Benefited from group support and feedback. Progress noted however continues to struggle at time with managing ruminations and thoughts. Will continue in IOP to prevent futher decompensation. Eye Contact:: Good Motor Activity:: Appropriate Appearance:: Casual Speech:: Appropriate Mood:: Anxious Affect:: Congruent Thoughts:: Linear, Logical, No evidence of hallucinations/delusions noted Staff Interventions:: Therapist used open-ended questions to elicit information about client's current stressors and mood state. Therapist was supportive by using active listening and reflection.
--- NOTE | 2017-04-30 14:57 | BH.SGPN_ITS ---
Service Group Progress Note - Session Psychotherapy Session #2 Date Open:: 04/30/17 - group members Time Started:: 10:17 Time Stopped:: 11:15 Targeted Problem #:: 1 Type of Group:: Illness Management Goal of Group:: To increase understanding of communication and the various types of communication. Another goal was to increase understanding of impact communication styles can have. Client Response/Progress/Benefit:: Client responded well to session, providing insight to group discussion. Client appeared to connect with the quote stating, ?when we don?t fully communicate how we feel it?s like an illusion.? Client helped the group identify barriers to communication such as rehearsing, distractions, and unmanaged emotions. Client helped group identify various communication styles and reported she uses both the aggressive and passive types. Client reported growing up she was very passive as her family did not share feelings and client did not want to hurt others. Client reflected that because of being passive for so long client now responds aggressively when trying to communicate her needs. Client stated being aggressive negatively impacts client?s mental health and relationships. Client appeared to benefit from learning the different types of communication styles as well as increasing awareness of how communication impacts mental health. Client progressing as shown by her increased insight to the role of communication in mental health treatment. Eye Contact:: Good Motor Activity:: Appropriate Appearance:: Neat Speech:: Appropriate Mood:: Euthymic Affect:: Constricted - became tearful when discussing aggressive type Thoughts:: Linear, No evidence of hallucinations/delusions noted Staff Interventions:: Therapist facilitated the group discussion about communication and explained the different types of communication. Therapist assisted group members in connecting the communication styles to the way they communicate and impact the communication style has on their relationships. Therapist provided support by using active listening and providing feedback. Psychotherapy Session #3 Date Open:: 04/30/17 - group members Time Started:: 11:25 Time Stopped:: 12:15 Targeted Problem #:: 1 Type of Group:: Functional Skills Development Goal of Group:: To identify important components of communication and practice specific, clear communication. Client Response/Progress/Benefit:: Client responded well to session, active participant. Client reported she was able to utilize assertive communication in the activity because ?I knew nothing was at stake.? Client shared she feels frustrated as she has been trying to change her communication with supports, but her supports are reciprocating. Client helped the group identify strategies to increase assertive communication including managing emotions, expressing warning signs and triggers, and starting with one support at a time. Client reported she plans to share her mental health needs with her which client hopes will improve her interactions at family gatherings as well. Client appeared to benefit from identifying ways to improve her communication. Client seems to be progressing as shown by her report of implementing strategies learned in group, but can continue to benefit from regulating emotions when communicating with supports. Eye Contact:: Good Motor Activity:: Appropriate Appearance:: Neat Speech:: Appropriate Mood:: Anxious Affect:: Congruent - became tearful when discussing mental health impact Thoughts:: Linear, No evidence of hallucinations/delusions noted Staff Interventions:: Therapist led the discussion about important components of effective communication. Therapist provided each group member with the same three materials and broke the group into pairs. Therapist facilitated a communication activity in which the group members would have to achieve a goal by using effective communication to achieve such goal. Therapist processed the activity with the group.
--- NOTE | 2017-04-30 15:10 | BH.SGPN ---
Service Group Progress Note - Session Psychotherapy Session #1 Date Open:: 04/30/17 Time Started:: 09:05 Time Stopped:: 10:05 Type of Group:: Process - 6 group members Goal of Group:: The goal of today's group was to check-in with client's mood, stressors, and positives, review homework and introduce topic for the day. Client Response/Progress/Benefit:: Active participant in group discussion. Appears to be getting more comfortable in group setting. Emotion for today is antsy. Shared with the group that she completed goal over the weekend to have a family meeting to set up some structure, responsibilities, and rules. Believes that the meeting went well. Disucssed how this meeting and its outcome benefits her MH wellness. Denies any overhwhelming concerns over the weekend. Benefited from group support and praise. Progress noted as she reports limited symptoms over the weekend which is first in several months. Will continue in IOP to maintain gains. Eye Contact:: Fair Motor Activity:: Appropriate Appearance:: Casual Speech:: Appropriate Mood:: Anxious Affect:: Flat Thoughts:: Linear, Logical, No evidence of hallucinations/delusions noted Staff Interventions:: Therapist used open-ended questions to elicit information about client's current stressors and mood state. Therapist was supportive by using active listening and reflection
--- NOTE | 2017-05-02 14:47 | BH.SGPN ---
Service Group Progress Note - Session Psychotherapy Session #1 Date Open:: 18 - 8 group members Time Started:: 09:06 Time Stopped:: 10:15 Targeted Problem #:: 1 Type of Group:: Process Goal of Group:: The goal of today's group was to check-in with client's mood, stressors, and positives, and review homework. Client Response/Progress/Benefit:: Client responded well to session, providing supportive statements to peers. Client reports feeling motivated today as client's family has been communicating better and her son has been following his behavior chart. Client reported the weather negative impacts her mood, but she has been trying to not let it control my day as client tries to get out, listen to music, and focus on self-care. Client appeared to benefit from reflecting on progress and receiving ideas for self-care from peers. Client seems to be progressing as shown by improved mood and generalization of coping skills, but can continue to benefit from maintenance. Eye Contact:: Good Motor Activity:: Appropriate Appearance:: Neat Speech:: Appropriate Mood:: Euthymic Affect:: Constricted Thoughts:: Linear, No evidence of hallucinations/delusions noted Staff Interventions:: Therapist used open-ended questions to elicit information about client's current stressors and mood state. Therapist was supportive by using active listening and reflection.
--- NOTE | 2017-05-02 16:30 | BH.SGPN ---
Service Group Progress Note - Session Psychotherapy Session #2 Date Open:: 05/02/17 Time Started:: 10:20 Time Stopped:: 11:15 Targeted Problem #:: 1 Type of Group:: Illness Management - 7 group members Goal of Group:: To increase understanding of cognitive distortions, identify examples of when have had unhelpful thinking, and increase awareness of the impact cognitive distortions have on mental health. Client Response/Progress/Benefit:: Pt contributed to discussion and listened attentively to others. Pt reported she connects with the quote because her negative thoughts are powerful and have impacted her drastically with being able to function. Pt Eye Contact:: Good Motor Activity:: Appropriate Appearance:: Casual Speech:: Appropriate Mood:: Anxious Affect:: Congruent Thoughts:: Linear, Logical, No evidence of hallucinations/delusions noted Staff Interventions:: Therapist provided group members with a handout that listed ten cognitive distortions with examples. Therapist facilitated group discussion about cognitive distortions. Therapist led group members in an activity to help them understand the impact cognitive distortions can have on emotions and behavior. Therapist provided support by using active listening and providing feedback. Psychotherapy Session #3 Date Open:: 05/02/17 Time Started:: 11:30 Time Stopped:: 12:20 Targeted Problem #:: 1 Type of Group:: Functional Skills Development - 7 group members Goal of Group:: To identify ways of defeating cognitive distortions and rehearse defeating the identified cognitive distortion. Eye Contact:: Good Motor Activity:: Appropriate Appearance:: Casual Speech:: Appropriate Mood:: Anxious Affect:: Congruent Thoughts:: Linear, Logical, No evidence of hallucinations/delusions noted Staff Interventions:: Therapist utilized an activity as a tool in helping clients connect the amount of effort one will need to put forth to defeat cognitive distortions. Therapist provided group members with a handout to use as an aid when trying to defeat their unhelpful thinking. Therapist processed the worksheet with group members, helping them reframe the cognitive distortions.
--- NOTE | 2017-05-03 10:30 | BH.SGPN ---
Service Group Progress Note - Session Psychotherapy Session #1 Date Open:: 18 - 6 group members Time Started:: 09:06 Time Stopped:: 10:03 Targeted Problem #:: 1 Type of Group:: Process Goal of Group:: The goal of today's group was to check-in with client's mood, stressors, and positives, and review homework. Client Response/Progress/Benefit:: Client responded well to session, active participant and providing supportive statements to peers. Client reports feeling hopeful after discussing her challenges with the group. Client stated she is struggling with following her diet, especially in the afternoons. Client reported she and her doctors believe her increased appetite is due to client's new medication. Client shared she has been looking at this situation as lack of will power, but with gentle challenging client reported she will not benefit from self-blame. Client was receptive to ideas given by peers on how client can manage her appetite and cravings. Client shared she plans to try being mindful before eating as well as talking to her about getting rid of unhealthy snacks. Client appeared to benefit from problem-solving solutions with peers. Client progressing as shown by her report of reduced anxiety and implementation of healthy coping skills, but can continue to benefit from challenging negative thoughts. Eye Contact:: Good Motor Activity:: Appropriate Appearance:: Neat Speech:: Appropriate Mood:: Euthymic Affect:: Constricted Thoughts:: Linear, No evidence of hallucinations/delusions noted Staff Interventions:: Therapist used open-ended questions to elicit information about client's current stressors, coping, and mood state. Therapist was supportive by using active listening and reflection.
--- NOTE | 2017-05-03 15:33 | BH.MDN ---
Multi-Disciplinary Note - Note 45-min Individual Time Started:: 10:50 Date: 05/03/17 Purpose of session/treatment goals addressed:: Used the session to access symptoms and review progress in IOP. Reviewed recent homework assignments, set up family counseling session, and worked with pt on reframing perfectionistic thoughts which increase stress, anxiety, and anger. Eye Contact:: Good Motor Activity:: Appropriate Appearance:: Casual Speech:: Appropriate Mood:: Anxious Affect:: Congruent Thoughts:: Linear, Logical, No evidence of hallucinations/delusions noted Staff Interventions:: Reviewed thought log and other homework assignments. Utilized NV techniques to elicit change. Client Response:: Pt shared that she had completed goal to have a family meeting with and child this past weekend. Believes that the meeting went well and the family was able to develop a set of simple and concrete strategies/rules for the household. Roles and expectations were clearly defined. Pt reports that family is following through with rules which has helped decrease her stress. She discussed some episodes of anger, anxiety, and negative thinking in which she was able to manage with coping skills learned in IOP. Praised for her efforts. She talked at length about her black and white thinking and how it effects her perception and choices. She often sees her actions in terms of failure or success. This perception can lead her to focus or concentrate exclusively on one task or thought untill resolution. She was able to identify how this is negatively impacting her. Also able to identify the thinking errors. Overall, reports increased awareness and decrease in intrusive thoughts, anxiety, and depression. Risks/Concerns:: No risks or concerns noted. Progress Toward Goals/Plan:: Pt is making progress through increased awareness and implementing coping skills. Reports continued decrease in intensity, frequency, and duration of intrustive thoughts and anxiety. She continues to report occasional instrusive thoughts, anger, and overwhelming stress. Plan is to continue in IOP to maintain gains, prevent decompensation, and improve daily functioning. Will have a couple's session in 2 weeks. Time Stopped:: 11:30
--- NOTE | 2017-05-03 15:36 | BH.SGPN ---
Service Group Progress Note - Session Psychotherapy Session #3 Date Open:: 05/03/17 Time Started:: 11:20 Time Stopped:: 12:10 Targeted Problem #:: 1 Type of Group:: Functional Skills Development - 7 participants Goal of Group:: To identify specific barriers to an identified change clients would want to make and identify ways to overcome those barriers. Staff Interventions:: Therapist facilitated discussion about what helped the group overcome challenges that came about during the experiential activity. Therapist utilized the activity as a tool in relating those experiences to ways to overcome barriers with challenges in their life when trying to make change. Therapist group into smaller groups and had them brainstorm ways to overcome certain barriers to their identified change. Therapist provided support by using reflective listening and providing feedback.
--- NOTE | 2017-05-04 11:03 | PCM.PN.BLA ---
Progress Note This is an update to the history and physical. Patient is seen in follow-up for bipolar 1 disorder most recent episode manic with psychotic features, anxiety unspecified, rule out PTSD. History is been obtained per interview with patient, discussion with staff, review of chart. Case discussed with treatment team. Complaint-mood symptoms /anxiety-getting some good things from the program and starting to use them at home Interim history Patient reports overall increased mood stability with Zyprexa and discontinuation of Zoloft. Patient discontinued Zoloft last week. She reports increased ability to feel normally emotions but feels that her emotions are more in control. She reports that she is less emotionally reactive. She reports decreased irritability. She acknowledges some ongoing intermittent dysphoria. She has ruminative anxiety about dynamics at home and perfectionistic traits. She and her have set some household goals including 9 PM bedtime for their 5-1/2-year-old son. They were able to achieve these for out of 5 days. However, last night, there is an was in bed 20-30 minutes late due to schedule disruption of her coming home late. Discussed marital dynamics and communication. Looking forward to marriage retreat. No suicidal or homicidal ideation. No symptoms consistent with psychosis. Sleeping 7-8 hours per night. (10:30 PM to 6 AM) appetite normal. Denies nausea vomiting or diarrhea. Compliant with medication. Denies adverse effect. No symptoms consistent with EPS. Mental status exam Patient is a 41-year-old female who appears her stated age. She is alert and oriented in no acute distress. Ambulatory with normal gait and station. Cooperative with interview. Good eye contact. No psychomotor agitation or retardation. Casually dressed and groomed. Appropriate hygiene. Mood is depressed. Affect congruent. She is intermittently tearful. Speech is clear and of regular rate and volume. Language fluent. Thought process organized. Associations logical. Thought content significant for ruminative anxiety and themes of depression. No suicidal or homicidal ideation. No symptoms consistent with psychosis. Immediate recent and remote memory grossly intact. Attention and concentration are fair to good. Estimated intelligence and fund of knowledge average. Judgment and insight are fair. Diagnosis Bipolar 1 most recent episode manic with psychotic features F 31.2 Anxiety unspecified Rule out PTSD Lyme's disease Status post breast cancer Vitamin D deficiency Plan Patient has participated in [facility] and made us. She is appropriate for discharge from [facility] and admission to [facility]. Risks benefits alternatives of medications discussed with patient. Patient acknowledges understanding. Continue Zyprexa 15 mg p.o. nightly. Continue follow-up with Dr. Francois. Encouraged ongoing use of coping skills. Patient acknowledges understanding and is in agreement with plan. She feels able to maintain safety. She agrees to seek help or emergency care feeling unsafe to self or others. 25 minutes of Insight oriented psychotherapy provided regarding perfectionism, black and white thinking, and marital dynamics.
--- NOTE | 2017-05-04 11:11 | BH.DR.ITP ---
Initial Treatment Plan - Patient Information Visit Information: ADMISSION DATE: EXPECTED LOS: 4-6 weeks Diagnoses:: Bipolar disorder of 31.2 - Problems/Symptoms Problem #1:: Mood instability Symptom:: Depression, irritability, biologic disruption of sleep and appetite. Problem #2:: anxiety Symptom:: Rumination, perfectionistic traits
--- NOTE | 2017-05-04 11:12 | PN_ITS ---
Progress Note This is an update to the history and physical. Patient is seen in follow-up for bipolar 1 disorder most recent episode manic with psychotic features, anxiety unspecified, rule out PTSD. History is been obtained per interview with patient, discussion with staff, review of chart. Case discussed with treatment team. Complaint-mood symptoms /anxiety-getting some good things from the program and starting to use them at home Interim history Patient reports overall increased mood stability with Zyprexa and discontinuation of Zoloft. Patient discontinued Zoloft last week. She reports increased ability to feel normally emotions but feels that her emotions are more in control. She reports that she is less emotionally reactive. She reports decreased irritability. She acknowledges some ongoing intermittent dysphoria. She has ruminative anxiety about dynamics at home and perfectionistic traits. She and her have set some household goals including 9 PM bedtime for their 5-1/2-year-old son. They were able to achieve these for out of 5 days. However, last night, there is an was in bed 20-30 minutes late due to schedule disruption of her coming home late. Discussed marital dynamics and communication. Looking forward to marriage retreat. No suicidal or homicidal ideation. No symptoms consistent with psychosis. Sleeping 7-8 hours per night. (10:30 PM to 6 AM) appetite normal. Denies nausea vomiting or diarrhea. Compliant with medication. Denies adverse effect. No symptoms consistent with EPS. Mental status exam Patient is a 41-year-old female who appears her stated age. She is alert and oriented in no acute distress. Ambulatory with normal gait and station. Cooperative with interview. Good eye contact. No psychomotor agitation or retardation. Casually dressed and groomed. Appropriate hygiene. Mood is depressed. Affect congruent. She is intermittently tearful. Speech is clear and of regular rate and volume. Language fluent. Thought process organized. Associations logical. Thought content significant for ruminative anxiety and themes of depression. No suicidal or homicidal ideation. No symptoms consistent with psychosis. Immediate recent and remote memory grossly intact. Attention and concentration are fair to good. Estimated intelligence and fund of knowledge average. Judgment and insight are fair. Diagnosis Bipolar 1 most recent episode manic with psychotic features F 31.2 Anxiety unspecified Rule out PTSD Lyme's disease Status post breast cancer Vitamin D deficiency Plan Patient has participated in [facility] and made us. She is appropriate for discharge from [facility] and admission to [facility]. Risks benefits alternatives of medications discussed with patient. Patient acknowledges understanding. Continue Zyprexa 15 mg p.o. nightly. Continue follow-up with Dr. Francois. Encouraged ongoing use of coping skills. Patient acknowledges understanding and is in agreement with plan. She feels able to maintain safety. She agrees to seek help or emergency care feeling unsafe to self or others. 25 minutes of Insight oriented psychotherapy provided regarding perfectionism, black and white thinking, and marital dynamics.
--- NOTE | 2017-05-04 15:45 | BH.SGPN_ITS ---
Service Group Progress Note - Session Psychotherapy Session #2 Date Open:: 05/04/17 Time Started:: 10:30 Time Stopped:: 11:20 Targeted Problem #:: 1 Type of Group:: Illness Management - 7 group members Goal of Group:: To increase understanding of the importance of sleep and identify healthy and unhealthy choices that impact sleep. Eye Contact:: Good Motor Activity:: Appropriate Appearance:: Casual Speech:: Appropriate Mood:: Anxious Affect:: Congruent Thoughts:: Linear, Logical, No evidence of hallucinations/delusions noted Staff Interventions:: Therapist facilitated group discussion about importance of sleep and the negative impact poor sleep can have on body and mind. Therapist led activity in which group members were to identify the dos and don???ts of sleep. Group members were provided a handout that listed positive sleep habits and things to avoid when trying to improve sleep quality. Psychotherapy Session #3 Date Open:: 05/04/17 Time Started:: 11:30 Time Stopped:: 12:20 Targeted Problem #:: 1 Type of Group:: Functional Skills Development Goal of Group:: To identify current sleep routine and choose one small change to make in routine to help improve sleep quality. Eye Contact:: Good Motor Activity:: Appropriate Appearance:: Casual Speech:: Appropriate Mood:: Anxious Affect:: Congruent Thoughts:: Linear, Logical, No evidence of hallucinations/delusions noted Staff Interventions:: Therapist facilitated group discussion about importance of having a consistent sleep routine. Therapist led group in an activity in which the group members were asked to write down their current sleep routine. Therap ist encouraged group members to make one small change to current sleep routine that would positively benefit their sleep quality.
== END 2017-05-05 23:59 ==
LOC: BHIOP 09:00
PROVIDERS: Visit Provider Psychiatry & Neurology Psychiatry
DX: F31.2 Bipolar disorder, current episode manic severe with psychotic features (principal); F41.9 Anxiety disorder, unspecified; A69.20 Lyme disease, unspecified; Z85.3 Personal history of malignant neoplasm of breast; E55.9 Vitamin D deficiency, unspecified
CPT/HCPCS: H0035; 90834; 90853

== ENCOUNTER 2017-05-07 09:00 | Outpatient (RCR) | payer BC, SELFPAY ==
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
--- NOTE | 2017-05-07 13:54 | BH.SGPN_ITS ---
Service Group Progress Note - Session Psychotherapy Session #2 Date Open:: 05/07/17 participants Time Started:: 10:17 Time Stopped:: 11:14 Targeted Problem #:: 1 Type of Group:: Illness Management Goal of Group:: The goal of group was to increase understanding of coping strategies and impact problems have on self. Another goal was to practice utilizing coping skills in the moment. Client Response/Progress/Benefit:: Client responded well to session, active participant. Client connected with the quote sharing we sometimes deny that we are part of the problem which can lead to avoidance and negative coping skills. Client reported the size of the problem is often impacted by the way one gera with it and how one learned to cope. Client participated in an activity aimed to help client's use in the moment coping strategies, and after shared, I almost gave up because I didn't have any new ideas but client was able to finish the activity. Client's comment prompted a discussion of the importance of having internal and external coping skills. Client stated it is beneficial to have a balance of internal and external and quality over quantity. Client appeared to benefit from increasing awareness of how one learns coping skills and the importance of having a balance of internal and external coping skills. Client progressing as shown by her report of increased emotional regulation, but can continue to benefit from maintenance. Eye Contact:: Good Motor Activity:: Appropriate Appearance:: Neat Speech:: Appropriate Mood:: Euthymic Affect:: Full Thoughts:: Linear, No evidence of hallucinations/delusions noted Staff Interventions:: Therapist facilitated the group discussion about coping strategies. Therapist provided group members with folders and gave them the challenge to work together and build the tallest tower with the given supplies. Therapist utilized the activity as a tool to process what it feels like when dealing with problems and what strategies they used to cope throughout activity. Psychotherapy Session #3 Date Open:: 05/07/17 participants Time Started:: 11:22 Time Stopped:: 12:15 Targeted Problem #:: 1 Type of Group:: Functional Skills Development Goal of Group:: Goal was to increase client?s self-awareness on their use of coping strategies and increase repertoire of healthy coping strategies. Client Response/Progress/Benefit:: Client responded well to session, active and providing good insight. Client reported it is important to ?not just rely on internal? but rather have a balance of different coping skills and supports. Client helped the group develop a list of coping skills for the following categories: distraction, self-love, thought challenge, emotional release, and grounding. Client stated it is important to use skills from each category as they all serve a different mental wellness purpose. Client shared it is challenging to change coping patterns, so having awareness is important. Client created a 'coping skills menu' which included, listening to music, 5-4-3-2-1, challenging thoughts, journaling, having ?quiet time,? taking a bubble bath, and using delay distract decide. Client appeared to benefit from gaining awareness of the various types of coping skills and the purpose each category serves. Client progressing as evidenced by her report of implementing numerous coping skills to regulate emotions, but can continue to benefit from communicating with her external supports. Eye Contact:: Good Motor Activity:: Appropriate Appearance:: Neat Speech:: Appropriate Mood:: Euthymic Affect:: Constricted Thoughts:: Linear, No evidence of hallucinations/delusions noted Staff Interventions:: Therapist facilitated discussion about the different types of coping skills. Therapist led group in an activity in which group members were asked to brainstorm coping strategies that fit in each coping skill category. Therapist reviewed each coping strategy with the group and led a discussion about whether the coping strategies identified were healthy or unhealthy. Therapist provided homework in which group members creating a coping skills menu and would practice two skills a day.
--- NOTE | 2017-05-09 11:34 | BH.SGPN_ITS ---
Service Group Progress Note - Session Psychotherapy Session #1 Date Open:: 18 - 8 participants Time Started:: 09:03 Time Stopped:: 10:10 Targeted Problem #:: 1 Type of Group:: Process Goal of Group:: The goal of today's group was to check-in with client's mood, stressors, and positives, and review homework. Client Response/Progress/Benefit:: Client responded well to session, quiet, but providing to discussion. Client reports feeling overall better than last week, but sleepy this morning as client shared belief her medication could be increa sing drowsiness. Client stated she has been making more time for self-care and had a craft day with her son yesterday. Client also reports feeling more productive and has been seeing increased success with challenging negative thoughts. Client appeared to benefit from reflecting on her progress and reviewing coping skills that have worked for her. Client seems to be progressing as shown by her report of increased mood stability, but can continue to benefit from coping skill maintenance. Eye Contact:: Good Motor Activity:: Appropriate Appearance:: Neat Speech:: Soft Mood:: Euthymic Affect:: Constricted Thoughts:: Linear, No evidence of hallucinations/delusions noted Staff Interventions:: Therapist used open-ended questions to elicit information about client's current stressors and mood state. Therapist was supportive by using active listening and reflection.
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
--- NOTE | 2017-05-10 14:35 | BH.SGPN_ITS ---
Service Group Progress Note - Session Psychotherapy Session #2 Date Open:: 05/10/17 - 7 group members Time Started:: 10:30 Time Stopped:: 11:03 Targeted Problem #:: 1 Type of Group:: Illness Management Goal of Group:: To increase understanding of pitfalls and impact can have on mental health. Client Response/Progress/Benefit:: Client responded well to session, active participant. Client connected with the quote sharing ?the easy path is like our comfort zone, but it keeps you stuck.? Client identified pitfalls as a danger, setback, or difficulty. Client shared pitfalls can increase depression, negative thinking, and anxiety. Client participated in an activity to help gain awareness of pitfalls. Client shared ?having awareness is important to make changes, but it adds pressure.? Client stated communicating with supports and managing emotions helps avoid pitfalls. Client appeared to benefit from increasing awareness of how pitfalls impact mental health. Client to continue IOP to promote mood stability. Eye Contact:: Good Motor Activity:: Appropriate Appearance:: Neat Speech:: Appropriate Mood:: Euthymic Affect:: Constricted Thoughts:: Linear, No evidence of hallucinations/delusions noted Staff Interventions:: Therapist facilitated discussion about pitfalls and assisted group in identifying common pitfalls that can set you back. Therapist led group in an activity to help group understand impact pitfalls can have on oneself and identify strategies that could help you get back on the right path. Therapist provided support by using active listening and providing feedback. Psychotherapy Session #3 Date Open:: 05/10/17 - 6 group members Time Started:: 11:10 Time Stopped:: 12:10 Targeted Problem #:: 1 Type of Group:: Functional Skills Development Goal of Group:: To identify personal pitfalls and what keeps them stuck from moving forward. Client Response/Progress/Benefit:: Client responded well to session, active in discussion. Client identified her personal pitfalls as: deep sadness, crying spells, increased energy and ?creative urges,? decreased sleep, and feeling invisible. Client stated she has increased her awareness of warning signs and pitfalls which has helped client maintain progress. Client identified strategies to prevent falling into pitfalls such as communicating with her needs with her supports and using coping skills daily. Client appeared to benefit from identifying strategies to keep client from falling into her pitfalls. Progress noted as shown by improved awareness and mood stability. Eye Contact:: Good Motor Activity:: Appropriate Appearance:: Neat Speech:: Appropriate Mood:: Euthymic Affect:: Constricted Thoughts:: Linear, No evidence of hallucinations/delusions noted Staff Interventions:: Therapist facilitated activity in which group members were given the task to identify personal pitfalls and what keeps them stuck from moving past the pitfall. Therapist provided group members with the homework assignment of identifying strategies that can help them overcome pitfalls.
--- NOTE | 2017-05-14 11:09 | BH.SGPN_ITS ---
Service Group Progress Note - Session Psychotherapy Session #1 Date Open:: 18 - 6 participants Time Started:: 09:03 Time Stopped:: 10:10 Targeted Problem #:: 1 Type of Group:: Process Goal of Group:: The goal of today's group was to check-in with client's mood, stressors, and positives, and review homework. Client Response/Progress/Benefit:: Client responded well to session, open in discussion and providing supportive statements. Client reports feeling connected today due to client having a good weekend away with her at a couple?s retreat. Client described the weekend as self-care for us and stated she did not experience any negative thoughts or stress the entire time. Client shared when they returned Sunday she began to feel stress and experienced negative thoughts, but was able to manage anxiety through use of positive self-talk and reframing. Client appeared to benefit from reflecting on her progress and resiliency. Progress noted as shown by increased self-care, use of thought challenging, and improved mood stability. Client to continue IOP to promote gains and coping skills maintenance. Eye Contact:: Good Motor Activity:: Appropriate Appearance:: Neat Speech:: Appropriate Mood:: Euthymic Affect:: Constricted Thoughts:: Linear, No evidence of hallucinations/delusions noted Staff Interventions:: Therapist used open-ended questions to elicit information about client's current stressors and mood state. Therapist was supportive by using active listening and reflection.
--- NOTE | 2017-05-14 15:48 | BH.SGPN ---
Service Group Progress Note - Session Psychotherapy Session #2 Date Open:: 05/14/17 Time Started:: 10:23 Time Stopped:: 11:17 Targeted Problem #:: 1 Type of Group:: Illness Management - 6 participants Goal of Group:: To increase understanding of the various life chapters people can go through and the impacts various internal and external factors may have on what chapter someone may currently be on. Another goal was to increase self-awareness of view of their past, present, and future. Client Response/Progress/Benefit:: Client receptive to session and was an actively engaged participant throughout. She indicated connecting with the topic of choosing a different path and did well to openly discuss the various internal forces impacting her ability to move to the next chapter. CLient benefited from discussing the Chapters of Life handout with the group and shared that prior to beginning IOP she was only on Chapter 2. Client discussed that limited awareness of warning signs and triggers had impacted her ability to move forward. Client expressed she feels she has developed a clearer understanding of what contributes to increased anxiety and is showing consistent implementation of skills identified as helpful in managing such. Recommended continued IOP to maintain stability and application of tx concepts discussed. Eye Contact:: Good Motor Activity:: Appropriate Appearance:: Casual Speech:: Appropriate Mood:: Euthymic Affect:: Full Thoughts:: Linear, Logical, No evidence of hallucinations/delusions noted Staff Interventions:: Therapist provided each group member with a handout labeled Chapters of My Life and facilitated group discussion about each of the five chapters from the handout. Therapist led an activity to help clients gain self-awareness of how perspective impacts the chapter we may be on. Therapist provided support by using reflective listening and providing feedback. Psychotherapy Session #3 Date Open:: 05/14/17 Time Started:: 11:25 Time Stopped:: 12:15 Targeted Problem #:: 1 Type of Group:: Functional Skills Development - 6 participants Goal of Group:: Therapist provided each group member with a handout labeled Chapters of My Life and facilitated group discussion about each of the five chapters from the handout. Therapist led an activity to help clients gain self-awareness of how perspective impacts the chapter we may be on. Therapist provided support by using reflective listening and providing feedback. Client Response/Progress/Benefit:: Client again was well engaged and provided quality input and encouragement to the group. She worked with the group to discuss the difficulties in making a decision to change the current path out of fear of what others may think and appeared to benefit from listening to others discuss personal experiences related to making a decision to change. CLient shared beliefs that sometimes staying on chapter 4 can be more beneficial than moving on to chapter 5 becuase in chapter 4 we are forced to remember where we don't wont to return to everytime we step around our old pitfalls. CLient was able to make connections between the 7 stepts for effective decision making and her personal life. Recommended continued IOP to maintain gains made and continue to increase client insight. Eye Contact:: Good Motor Activity:: Appropriate Appearance:: Casual Speech:: Appropriate Mood:: Euthymic Affect:: Full Thoughts:: Linear, Logical, No evidence of hallucinations/delusions noted Staff Interventions:: Therapist processed which chapter each group member identified for the past, present and future. Provided education regarding the 7 steps to effective decision making and assisted clients in applying this concept to personal life. Therapist used open ended questions to elicit elaboration. Therapist led discussion about what has helped each person move to the current life chapter. Therapist assisted clients with identifying what are barriers to moving forward. Therapist provided support by using active listening and providing feedback.
--- NOTE | 2017-05-14 16:14 | BH.SGPN_ITS ---
Service Group Progress Note - Session Psychotherapy Session #2 Date Open:: 05/14/17 Time Started:: 10:23 Time Stopped:: 11:17 Targeted Problem #:: 1 Type of Group:: Illness Management - 6 participants Goal of Group:: To increase understanding of the various life chapter?s people can go through and the impacts various internal and external factors may have on what chapter someone may currently be on. Another goal was to increase self- awareness of view of their past, present, and future. Client Response/Progress/Benefit:: Client receptive to session and was an actively engaged participant throughout. She indicated connecting with the topic of choosing a different path and did well to openly discuss the various internal forces impacting her ability to move to the next chapter. CLient benefited from discussing the Chapters of Life handout with the group and shared that prior to beginning IOP she was only on Chapter 2. Client discussed that limited awareness of warning signs and triggers had impacted her ability to move forward. Client expressed she feels she has developed a clearer understanding of what contributes to increased anxiety and is showing consistent implementation of skills identified as helpful in managing such. Recommended continued IOP to maintain stability and application of tx concepts discussed. Eye Contact:: Good Motor Activity:: Appropriate Appearance:: Casual Speech:: Appropriate Mood:: Euthymic Affect:: Full Thoughts:: Linear, Logical, No evidence of hallucinations/delusions noted Staff Interventions:: Therapist provided each group member with a handout labeled ?Chapters of My Life? and facilitated group discussion about each of the five chapters from the handout. Therapist led an activity to help client?s gain self-awareness of how perspective impacts the chapter we may be on. Therapist provided support by using reflective listening and providing feedback. Psychotherapy Session #3 Date Open:: 05/14/17 Time Started:: 11:25 Time Stopped:: 12:15 Targeted Problem #:: 1 Type of Group:: Functional Skills Development - 6 participants Goal of Group:: Therapist provided each group member with a handout labeled ? Chapters of My Life? and facilitated group discussion about each of the five chapters from the handout. Therapist led an activity to help client?s gain self- awareness of how perspective impacts the chapter we may be on. Therapist provided support by using reflective listening and providing feedback. Client Response/Progress/Benefit:: Client again was well engaged and provided quality input and encouragement to the group. She worked with the group to discuss the difficulties in making a decision to change the current path out of fear of what others may think and appeared to benefit from listening to others discuss personal experiences related to making a decision to change. CLient shared beliefs that sometimes staying on chapter 4 can be more beneficial than moving on to chapter 5 becuase in chapter 4 we are forced to remember where we don't wont to return to everytime we step around our old pitfalls. CLient was able to make connections between the 7 stepts for effective decision making and her personal life. Recommended continued IOP to maintain gains made and continue to increase client insight. Eye Contact:: Good Motor Activity:: Appropriate Appearance:: Casual Speech:: Appropriate Mood:: Euthymic Affect:: Full Thoughts:: Linear, Logical, No evidence of hallucinations/delusions noted Staff Interventions:: Therapist processed which chapter each group member identified for the past, present and future. Provided education regarding the 7 steps to effective decision making and assisted clients in applying this concept to personal life. Therapist used open ended questions to elicit elaboration. Therapist led discussion about what has helped each person move to the current life chapter. Therapist assisted clients with identifying what are barriers to moving forward. Therapist provided support by using active listening and providing feedback.
--- NOTE | 2017-05-16 10:43 | BH.SGPN ---
Service Group Progress Note - Session Psychotherapy Session #1 Date Open:: 05/16/17 Time Started:: 09:08 Time Stopped:: 10:08 Targeted Problem #:: 1 Type of Group:: Process - 5 participants Goal of Group:: The goal of today's group was to check-in with client's mood, stressors, and positives, review homework and introduce topic for the day. Client Response/Progress/Benefit:: Client attentive and willing to participate in process session. She shared having had a productive day yesterday as she was able to cross several doctor's appointments off her to-do list and is slowly beginning to see progress in that area. Client went on to discuss reading a new book called Tackling Your To-Do List that has had some helpful ideas in it. She shared that although she is making progress with her mental health she has found herself increasingly frustrated with the fact that she has begun to gain weight as a result of side effects from her psychiatric medication. She described this as most frustrating because it had taken her a long time to originally lose the weight and she fears she will gain it all back. CLient disclosed feeling as though she is starting back at square one. She responded well and appeared to benefit from the supportive feedback of the group and advice fellow participants shared regarding their own experiences with medication related weight gain. CLient recommended continued IOP to further address distorted and anxious thinking patterns. Eye Contact:: Good Motor Activity:: Appropriate Appearance:: Casual Speech:: Appropriate Mood:: Dysthymic Affect:: Congruent Thoughts:: Linear, Logical, No evidence of hallucinations/delusions noted Staff Interventions:: Therapist used open-ended questions to elicit information about client's current stressors and mood state. Therapist was supportive by using active listening and reflection.
--- NOTE | 2017-05-16 14:06 | BH.MDN ---
Multi-Disciplinary Note - Note Family Time Started:: 13:00 Date: 05/16/17 Purpose of session/treatment goals addressed:: Met with pt's for a family session to discuss progress in program, communication, psycho-education, and strategies that support can use to help pt during recovery Eye Contact:: Fair Motor Activity:: Appropriate Appearance:: Casual Speech:: Appropriate Mood:: Anxious, Depressed Affect:: Congruent Thoughts:: Linear, Logical, No evidence of hallucinations/delusions noted Staff Interventions:: Facilitated discussion on several topics. Modeled communication skills. Client Response:: Pt discussed her progress in the program including the skills that she has been utilizing the most. They discussed recent couples retreat this past weekend and pt had stated that it was the first weekend in several months were she did not experience any overwhelming thoughts, emotions, or stressors. She attributes this to change of scenery and utilizing skills. Pt has brought up some communication challenges which therapist processed with pt and . Majority of the session pt used to develop strategies to educate her parents on bipolar, the effects that some of thier passive-aggressive comments have on pt, and to decrease akwardness of thier relationship since her psychiatric admission. Risks/Concerns:: No risks or concerns noted. Progress Toward Goals/Plan:: Progress noted. reports that pt appears to be managing her thoughts and overall mood more effectively, however did report ups and downs. was very reserved and did not speak or elaborate much on his thoughts which made developing strategies difficulty at times, however he was supportive. Pt continues to have intrusive thoughts which cause increased anger, depression, crying spells, and panic however they have decrease in intensity, frequency, and duration. Using skills learned to identify warning signs and challenge thoughts. Overall improvement however would benefit from continue IOP to improve coping skills and show consistent stability. Time Stopped:: 14:00
--- NOTE | 2017-05-16 16:00 | BH.SGPN ---
Service Group Progress Note - Session Psychotherapy Session #2 Date Open:: 05/16/17 Time Started:: 10:15 Time Stopped:: 11:15 Targeted Problem #:: 1 Type of Group:: Illness Management Goal of Group:: The goal of today group is to identify how emotions can impact our communication skills, and why it is important to be able to communicate in stressful situations. Client Response/Progress/Benefit:: Pt contributed to discussion and listened attentively to others. Pt reported when she is frustrated it can lead to power struggles, escalation, and ineffective communication. Pt connected with activity about importance of being able to manage emotions in the moment because unregulated emotions can lead to miscommunication and increased problems. Pt seemed to benefit from increased awareness of emotional regulation and impact emotions can have on ability to effectively communicate. Eye Contact:: Good Motor Activity:: Appropriate Appearance:: Neat Speech:: Appropriate Mood:: Anxious, Depressed Affect:: Constricted, Congruent Thoughts:: Linear, Logical, No evidence of hallucinations/delusions noted Staff Interventions:: Therapist led an experiential activity where group members worked together for a common goal, but with adaptations made on how members were able to communicate with one another. Therapist used open-ended questions to elicit group discussion about emotions which arose during activity, as well as identifying how emotions experienced impacted ability to communicate effectively with other group members. Psychotherapy Session #3 Date Open:: 05/16/17 Time Started:: 11:30 Time Stopped:: 12:20 Targeted Problem #:: 1 Type of Group:: Functional Skills Development Goal of Group:: The goal of today group was to increase awareness of different states of alertness attached to emotions and identifying healthy coping strategies for each state of alertness. Client Response/Progress/Benefit:: Pt engaged and active during discussion. Listened attentively to others. Pt identified various emotions that were appropriate for each of the zones of regulation. Pt reported she most often would be in the heightened emotions zone because often anxious, which she connects with how she eventually gets burned out when constantly in that zone. Pt seemed to benefit from group brainstorm of different coping skills that would be best to use based on what zone of alertness she is experiencing. Eye Contact:: Good Motor Activity:: Appropriate Appearance:: Casual Speech:: Appropriate Mood:: Anxious, Depressed Affect:: Constricted Thoughts:: Linear, Logical, No evidence of hallucinations/delusions noted Staff Interventions:: Therapist facilitated group by teaching about the 4 zones of different states of alertness and helping clients connect emotions to each zone based on state of alertness. Therapist assisted clients with identifying healthy coping strategies that would be best utilized based on the state of alertness. Therapist provided support by using active listening and providing feedback.
--- NOTE | 2017-05-17 11:55 | BH.SGPN ---
Service Group Progress Note - Session Psychotherapy Session #1 Date Open:: 05/17/17 Time Started:: 09:10 Time Stopped:: 10:10 Targeted Problem #:: 1 Type of Group:: Process - 5 group members Goal of Group:: The goal of today's group was to check-in with client's mood, stressors, and positives, review homework and introduce topic for the day. Client Response/Progress/Benefit:: Pt shared yesterday she had a family session which was helpful. Pt reported she went to the park with her son when he got out of school. Shared she was able to be productive by organizing one of the rooms in her house. Pt shared she is having less intrusive thoughts. Attributes the less intrusive thoughts to medications, but recongizes she has also been using healthy skills. Pt identified feeling calm and peaceful this morning. Pt showing progress AEB pt reporting decrease in intrusive thoughts as well as continuing to generalize her skills. Pt to continure IOP to maintain gains and prevent decompensation. Eye Contact:: Fair Motor Activity:: Appropriate Appearance:: Casual Speech:: Appropriate Mood:: Euthymic, Anxious Affect:: Constricted Thoughts:: Linear, Logical, No evidence of hallucinations/delusions noted Staff Interventions:: Therapist used open-ended questions to elicit information about client's current stressors and mood state. Therapist was supportive by using active listening and reflection.
--- NOTE | 2017-05-17 15:44 | BH.SGPN ---
Service Group Progress Note - Session Psychotherapy Session #2 Date Open:: 05/17/17 Time Started:: 10:20 Time Stopped:: 11:17 Targeted Problem #:: 1 Type of Group:: Illness Management - 6 participants Goal of Group:: The goal of group was to increase understanding of the benefits social support provides in mental health wellness. Another goal was to increase self-awareness of the barriers that prevent client to seeking support or utilizing the support they have. Eye Contact:: Good Motor Activity:: Appropriate Appearance:: Casual Speech:: Appropriate Mood:: Euthymic Affect:: Congruent Thoughts:: Linear, Logical, No evidence of hallucinations/delusions noted Staff Interventions:: Therapist led a group discussion about importance of social supports. Therapist facilitated an activity that required the group members to utilize support from each other. Therapist utilized the activity as a tool to connect the importance of accepting social support. Therapist provided support through reflective listening and giving feedback. Psychotherapy Session #3 Date Open:: 05/17/17 Time Started:: 11:22 Time Stopped:: 12:20 Targeted Problem #:: 1 Type of Group:: Functional Skills Development - 5 participants Goal of Group:: The goal of group was to increase understanding of the different types of social support. Another goal was to identify one type of support the client?s desire and establish one small step towards achieving that support. Eye Contact:: Good Motor Activity:: Appropriate Appearance:: Casual Speech:: Appropriate Mood:: Euthymic Affect:: Congruent Thoughts:: Linear, Logical, No evidence of hallucinations/delusions noted Staff Interventions:: Therapist facilitated group discussion on the different types of social support and importance of each type of support. A social support worksheet, was utilized to give clients direction in identifying which type of support they desired, how it will help, and identifying the first small step towards the desired support. Therapist provided homework for each group member to try and accomplish the one small step each group member identified on the worksheet.
--- NOTE | 2017-05-21 13:00 | BH.SGPN ---
Service Group Progress Note - Session Psychotherapy Session #2 Date Open:: 05/21/17 - 6 group members Time Started:: 10:18 Time Stopped:: 11:14 Targeted Problem #:: 1 Type of Group:: Illness Management Goal of Group:: To increase understanding of what stress is, identify current life stressors, and connect impact stressors have on mental health. Client Response/Progress/Benefit:: Client responded well to session, engaged in discussion providing good insight. Client appeared to connect with the quote stating, stress is more than thoughts, but they plan a big role. Client shared stress can impact all areas of health, especially mental health. Client identified her personal stressors as: health, marriage, diet, house work, parenting, and managing emotions. Client stated currently her stress is managed through use of self-care and thought challenge. Client reported when her stress is overflowing she is unable to function, irritable, numb, and has outbursts. Client appeared to benefit from gaining awareness of personal stressors. Client to continue IOP to promote gains and prevent decompensation. Eye Contact:: Good Motor Activity:: Appropriate Appearance:: Neat Speech:: Appropriate Mood:: Euthymic Affect:: Constricted Thoughts:: Linear, Logical, No evidence of hallucinations/delusions noted Staff Interventions:: Therapist facilitated discussion about stress. Therapist facilitated an activity in which group members were asked to identify various stressors they have in their life currently. Therapist instructed group members to indicate if certain stressors were larger than others. Therapist led processing of each member?s stress jar and helped them connect impact the stress has on their mental health. Psychotherapy Session #3 Date Open:: 05/21/17 - 6 group members Time Started:: 11:20 Time Stopped:: 12:16 Targeted Problem #:: 1 Type of Group:: Functional Skills Development Goal of Group:: To identify what stressors clients have control over and what stressors have no control over. Another goal was to increase repertoire of healthy strategies to help manage stress. Client Response/Progress/Benefit:: Client responded well to session, active participant. Client helped the group accomplish an activity the induced stress and promote the use of emotional regulation. Client stated the activity helped her gain awareness not to give up when stressors are high. Client discussed the importance of putting energy into reducing stressors in her control rather than ruminating of things out of her control. Client's in control stressors included housework, managing emotions, and attitude. Client identified strategies for stress management such as prioritizing, reframing thoughts, and asking for help from supports. Client appeared to benefit from increasing her repertoire of stressing reducing coping skills. Progress noted in client's improved mood, but can continue to benefit from challenging cognitive distortions. Eye Contact:: Good Motor Activity:: Appropriate Appearance:: Neat Mood:: Euthymic Affect:: Full Thoughts:: Linear, No evidence of hallucinations/delusions noted Staff Interventions:: Therapist facilitated discussion about control versus no control and helped group members connect the concept to stressors. Therapist led discussion about importance of putting forth more energy on those stressors they can control. Therapist facilitated brainstorming of strategies to help manage stress level. Therapist provided support by using active listening and providing feedback.
--- NOTE | 2017-05-23 11:27 | BH.TPR ---
Treatment Plan Review Date of Admission:: 04/24/17 Date of Treatment Plan Review:: 05/23/17 Admitting Diagnoses:: Bipolar I Current Diagnoses:: Bipolar I Patient's Response to Treatment:: Pt has been attending on a consistent basis and is an active participant in group. She is utilizing skills learned in group. She has completed a family session. Overall has responed well to treatment interventions and has made significant progress in IOP. Status of Current Problems and Symptoms: Pt continues to report negative and irrational thoughts which effect her daily functioning and mood. While she is utilizing strategies learned in group she at times struggles with consistently of mood and skills use. Would benefit from an additional week of IOP to complete treatment plan goals, maintain gains, further stablize mood, and display more consistency on skill utilization. Problem #1 Problem Name:: Client will increase mood stability and decrease depressive symptom Status of Goals:: Pt continues to make progress in accomplishing goals. She has identified triggers and irrational thoughts which lead to depressive symptoms. Able to identify some strategies to manage depression, negative thoughts, and irrationals thoughts/expectation. Team Recommendations:: Progressing well. Plan to discharge next week. Problem #2 Problem Name:: Stabilize anxiety level while increasing ability to function on daily basis Status of Goals:: Pt is on-track to complete goals with expected discharge next week. Team Recommendations:: Plan is to discharge next week.
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
--- NOTE | 2017-05-23 15:23 | BH.SGPN_ITS ---
Service Group Progress Note - Session Psychotherapy Session #2 Date Open:: 05/23/17 Time Started:: 10:20 Time Stopped:: 11:10 Type of Group:: Illness Management Goal of Group:: To increase understanding of fear and explore the negative impact fear of failure can have on mental health and decision making. Client Response/Progress/Benefit:: Pt was an active participant in group activity and discussion. Pt reports that her definition of failure is falling short of expectations.Along with the group she discussed how failure and fear of failing has impacted her life. She worked with the group during activity and processed the activity with group pointing out how learning from setbacks, misteps, and failures during the activity helped them accomplish thier goals. Shared the importance of viewing failure as a setback and not an absolute. Along with the group was able to identify how her percpetions of the task and her fear of not performing well impacted her motivation and increased her fear. Progress noted through increased awareness and education on how fear of failure impacts mental wellness. Able to identify that avoiding fear alltogether is unrealistic. Also able to identify how failure can be benefical. Eye Contact:: Good Motor Activity:: Appropriate Appearance:: Casual Speech:: Appropriate Mood:: Euthymic Affect:: Full Thoughts:: Linear, Logical, No evidence of hallucinations/delusions noted Staff Interventions:: Therapist facilitated discussion about fear and impact fear of failure can have. Therapist led group in an experiential activity in which client?s would fail numerous times throughout, but were given the opportunity to try again. Therapist led the processing of the activity and assisted clients with connecting how fear of failure impacted their decision making during the activity. Psychotherapy Session #3 Date Open:: 05/23/17 Time Started:: 11:20 Time Stopped:: 12:10 Type of Group:: Functional Skills Development - 9 group members Goal of Group:: To identify the impact fear of failure has had on the group members lives and identify strategies to overcome fear of failure. Client Response/Progress/Benefit:: Active participant in group discussion and activity. Completed worksheet regarding how failure has impacted them, what they gained from the group topic, and how they plan to use topics discussed today in daily life. Shared in her small group that she learned today that resiliency is an important skill in mental health recovery and overcoming failure. Stated that she plans to think about what obstacles or goals she has not followed through with due to fear. Progress noted AEB increased education and awareness. Will continue in IOP to maintain gains and prevent further decompensation. Eye Contact:: Good Motor Activity:: Appropriate Appearance:: Casual Speech:: Appropriate Mood:: Euthymic Affect:: Full, Flat Thoughts:: Linear, Logical, No evidence of hallucinations/delusions noted Staff Interventions:: Therapist provided each group member with a worksheet to complete that asked questions about their experiences with fear of failure. Therapist led the processing of the worksheet, helping client?s connect how fear of failure has impacted them. Therapist provided support by using active listening and providing feedback.
--- NOTE | 2017-05-24 10:26 | BH.SGPN ---
Service Group Progress Note - Session Psychotherapy Session #1 Date Open:: 05/24/17 - 7 group members Time Started:: 09:05 Time Stopped:: 10:05 Targeted Problem #:: 1 Type of Group:: Process Goal of Group:: The goal of today's group was to check-in with client's mood, stressors, and positives, and introduce topic for the day. Client Response/Progress/Benefit:: Client responded well to session, quiet, but providing supportive statements to peers. Client reports feeling content today, sharing yesterday to this morning was uneventful but it's good. Client reported she continues to struggle in the mornings with waking up, but stated once group ends she will have more time to get awake. Client stated she plans to start seeing a new therapist in [place] post IOP discharge which client is looking forward to. Client reports overall improved mood, consistent self-care, and an increased ability to challenge negative thoughts. Client appeared to benefit from connecting with peers and identifying a plan for self-care today. Client to continue IOP to promote gains and prevent decompensation. Eye Contact:: Good Motor Activity:: Appropriate Appearance:: Neat Speech:: Soft Mood:: Euthymic Affect:: Flat Thoughts:: Linear, No evidence of hallucinations/delusions noted Staff Interventions:: Therapist used open-ended questions to elicit information about client's current stressors and mood state. Therapist was supportive by using active listening and reflection.
--- NOTE | 2017-05-28 10:43 | BH.SGPN ---
Service Group Progress Note - Session Psychotherapy Session #1 Date Open:: 05/28/17 Time Started:: 09:05 Time Stopped:: 09:57 Targeted Problem #:: 1 Type of Group:: Process - 6 participants Goal of Group:: The goal of today's group was to check-in with client's mood, stressors, and positives, review homework. Client Response/Progress/Benefit:: Client an active participant of the group and responded well to session. She discussed feeling content this morning as had a good weekend with her [id number]. CLient discussed that they had taken her son and niece to go do different things like play at a [employer] and visit the [employer]. SHe went on to indicate that although it had been nice to see her son play with someone his own age, she felt guilty that she had struggled to remain present and enjoy herself. Client additionally discussed having met with her outpatient therapist for the first time on Sunday. She expressed feeling the session had gone well but is ambivalent about outpatient therapy as she is unsure of what else she has left to work on. Client benefited from litening to the other members discuss similar frustration regarding difficulty enjoying the moment. Client displaying progress in her ability to challenge negative thoughts and utilize healthy reframing skills. Given Client level of progress she is set to discharge from IOP program Sunday, 06/01. Eye Contact:: Good Motor Activity:: Appropriate Appearance:: Casual Speech:: Appropriate Mood:: Euthymic Affect:: Flat, Other - incongruent AEB client expressing feeling content and positive but appearing dysthymic. Thoughts:: Linear, Logical, No evidence of hallucinations/delusions noted Staff Interventions:: Therapist used open-ended questions to elicit information about client's current stressors and mood state. Therapist reviewed homework assigned from previous groups. Therapist was supportive by using active listening and reflection.
--- NOTE | 2017-05-28 11:04 | BH.SGPN_ITS ---
Service Group Progress Note - Session Psychotherapy Session #1 Date Open:: 05/28/17 Time Started:: 09:05 Time Stopped:: 09:57 Targeted Problem #:: 1 Type of Group:: Process - 6 participants Goal of Group:: The goal of today's group was to check-in with client's mood, stressors, and positives, review homework. Client Response/Progress/Benefit:: Client an active participant of the group and responded well to session. She discussed feeling content this morning as had a good weekend with her [id number]. CLient discussed that they had taken her son and niece to go do different things like play at a [employer] and visit the [employer]. SHe went on to indicate that although it had been nice to see her son play with someone his own age, she felt guilty that she had struggled to remain present and enjoy herself. Client additionally discussed having met with her outpatient therapist for the first time on Sunday. She expressed feeling the session had gone well but is ambivalent about outpatient therapy as she is unsure of what else she has left to work on. Client benefited from litening to the other members discuss similar frustration regarding difficulty enjoying the moment. Client displaying progress in her ability to challenge negative thoughts and utilize healthy reframing skills. Given Client level of progress she is set to discharge from IOP program Sunday, 06/01. Eye Contact:: Good Motor Activity:: Appropriate Appearance:: Casual Speech:: Appropriate Mood:: Euthymic Affect:: Flat, Other - incongruent AEB client expressing feeling content and positive but appearing dysthymic. Thoughts:: Linear, Logical, No evidence of hallucinations/delusions noted Staff Interventions:: Therapist used open-ended questions to elicit information about client's current stressors and mood state. Therapist reviewed homework assigned from previous groups. Therapist was supportive by using active listening and reflection.
--- NOTE | 2017-06-01 10:59 | BH.COMM ---
Communication Note - Communication with Client Communication Note: Therapist met with client to complete discharge paperwork as client's IOP therapist was out of the office. Therapist informed client her IOP therapist plans to call her next week to discuss aftercare and recommendations.
--- NOTE | 2017-06-01 12:19 | BH.AFTERPLAN ---
Aftercare Plan - Demographics Treatment End Date:: 06/01/17 Psychiatrist:: Rebecca Calixto Psychiatrist Office #:: [phone] [facility]/IOP Therapist:: Abdon Guerra Therapist Phone #:: [phone] - Medications Home Medications: Home Medications B Complx/C/Folic/Zinc/Copper/E [Eql Stress B-Complex Tablet] 1 each PO DAILY 04/20/17 Cholecalciferol (Vitamin D3) [Vitamin D3] 2,000 unit PO DAILY 04/20/17 Digestive Enzymes Combo No.7 [Superior Digestive Enzyme] 1 - 2 each PO TIDCM 04/20/17 Fish Oil/Borage/Flax/Om3,6,9#1 [[place] 3-6-9 1,200 mg Softgel] 1,200 mg PO BID 04/20/17 Glutathione 04/20/17 L.acidoph,Paracasei, B.lactis [Probiotic] 1 each PO DAILY 04/20/17 Magnesium Citrate 125 mg PO BID 04/20/17 Multivitamin [Daily Multiple Vitamin] 1 each PO DAILY 04/20/17 Olanzapine [Zyprexa] 15 mg PO QHS 04/20/17 Sertraline HCl [Zoloft] 50 mg PO DAILY 04/20/17 Trazodone HCl 50 - 150 mg PO QHS PRN 04/20/17 - Plan Details Progress/Aftercare Plan Details:: Pt has made significant progress during IOP treatment. Pt completed pre and post DSM cross cutting measurement and showed a significant reduction in symptoms going from a 31 to a 9. Reports decreased intensity, frequency, and duration of depression, anxiety, and instrusive thoughts. Denies any thoughts to harm self or others. Completed treatment plan goals as she is able to identify triggers to mood changes (irrational thoughts, cogntive distortions, and perceived failure) and ways to cope (thought-stopping, mindfullness, distraction). Able to identify warning signs to crisis and developed strategies to manage her negative, perfectionistic, and irrational thoughts. Pt has developed numerous calming skills to better manage anxiety and has identified specific thinking patterns (mainly restorationism based) which exacerbate her mental health symptoms. Completed couple's session with to increase communication and include in treatment process. Pt will follow up with outpatient psychiatrist and counselor. Strategies for Success:: 1. Continue to be aware of and identify cognitive distortions 2. Continue to challenge negative thoughts and utilize you thought-reframing skills. 3. Utilize your support (communicate to support your distress and be open to support when they idenitify decompensation) 4. Use mindfulness coping skills. 5. Follow up with counseling to maintain gains and prevent decompensation - Appointments Appointments/Referrals to Other Services:: Appointment with psychiatrist Dr. Francois on 06/12/2017. Appt with outpatient therapist Marcie Lamb next week. Pt unsure of the exact date. Pt is also going to be attending an anxiety support group at [facility].
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
--- NOTE | 2017-06-01 14:36 | BH.SGPN_ITS ---
Service Group Progress Note - Session Psychotherapy Session #2 Date Open:: 06/01/17 Time Started:: 10:30 Time Stopped:: 11:20 Targeted Problem #:: 1 Type of Group:: Illness Management Goal of Group:: The goal of this session was to increase self-awareness of what is holding them back from moving towards mental wellness and discuss importance of taking action in their treatment. Client Response/Progress/Benefit:: Pt active participant, listened attentively to others and engaged throughout. Pt identified lack of awareness, being lazy, mind reading, negative thinking, fear, feeling out of control, isolation, what- ifs, and fear of judgement are things that have too much power over her. Pt identified fear of judgement to be the most impactful currently in her life. Pt seemed to benefit from increased self-awareness of what hinders her progress. Eye Contact:: Good Motor Activity:: Appropriate Appearance:: Neat Speech:: Appropriate Mood:: Euthymic Affect:: Full Thoughts:: Linear, Logical, No evidence of hallucinations/delusions noted Staff Interventions:: Therapist facilitated discussion about what it means to take action in achieving mental health wellness. Therapist led activity in which clients were asked to identify the symptoms and things that they would like to take back control over. Therapist provided support by using active listening. Psychotherapy Session #3 Date Open:: 06/01/17 Time Started:: 11:30 Time Stopped:: 12:20 Targeted Problem #:: 1 Type of Group:: Functional Skills Development Goal of Group:: The goal of this session was to create a 30 day action plan that provides small goals that work towards taking action on one thing they would like to take back control over. Client Response/Progress/Benefit:: Pt contributed positively to discussion, active participant. Pt identifeid for her 30 day plan she focused on reducing avoidance and excuses to not using healthy skills. Pt reported her first step is to exercise at least 30 minutes a day by either biking,walking, or yoga. Pt shared her next step is to read or complete gratitude journal for 15 minutes a day. Pt reported reframing negative thoughts as her next step. Lastly pt shared she she will limit online/electronics to one hour a day. Pt appeared to benefit from identifying small goals to help her accomplish her goal within the 30 day period. Eye Contact:: Good Motor Activity:: Appropriate Appearance:: Neat Speech:: Appropriate Mood:: Euthymic Affect:: Full Thoughts:: Linear, Logical, No evidence of hallucinations/delusions noted Staff Interventions:: Therapist provided materials and guidance to help clients create a 30 day action plan. Therapist provided support by giving feedback and using active listening.
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
--- NOTE | 2017-06-01 15:02 | BH.IGGP_ITS ---
Aftercare Plan - Demographics Treatment End Date:: 06/01/17 Psychiatrist:: Rebecca Calixto Psychiatrist Office #:: [phone] [facility]/IOP Therapist:: Abdon Guerra Therapist Phone #:: [phone] - Medications Home Medications: Home Medications B Complx/C/Folic/Zinc/Copper/E [Eql Stress B-Complex Tablet] 1 each PO DAILY Cholecalciferol (Vitamin D3) [Vitamin D3] 2,000 unit PO DAILY 04/20/17 Digestive Enzymes Combo No.7 [Superior Digestive Enzyme] 1 - 2 each PO TIDCM Fish Oil/Borage/Flax/Om3,6,9#1 [[place] 3-6-9 1,200 mg Softgel] 1,200 mg PO BID Glutathione 04/20/17 L.acidoph,Paracasei, B.lactis [Probiotic] 1 each PO DAILY 04/20/17 Magnesium Citrate 125 mg PO BID 04/20/17 Multivitamin [Daily Multiple Vitamin] 1 each PO DAILY 04/20/17 Olanzapine [Zyprexa] 15 mg PO QHS 04/20/17 Sertraline HCl [Zoloft] 50 mg PO DAILY 04/20/17 Trazodone HCl 50 - 150 mg PO QHS PRN 04/20/17 - Plan Details Progress/Aftercare Plan Details:: Pt has made significant progress during IOP treatment. Pt completed pre and post DSM cross cutting measurement and showed a significant reduction in symptoms going from a 31 to a 9. Reports decreased intensity, frequency, and duration of depression, anxiety, and instrusive thoughts. Denies any thoughts to harm self or others. Completed treatment plan goals as she is able to identify triggers to mood changes (irrational thoughts, cogntive distortions, and perceived failure) and ways to cope (thought-stopping , mindfullness, distraction). Able to identify warning signs to crisis and developed strategies to manage her negative, perfectionistic, and irrational thoughts. Pt has developed numerous calming skills to better manage anxiety and has identified specific thinking patterns (mainly amish based) which exacerbate her mental health symptoms. Completed couple's session with to increase communication and include in treatment process. Pt will follow up with outpatient psychiatrist and counselor. Strategies for Success:: 1. Continue to be aware of and identify cognitive distortions 2. Continue to challenge negative thoughts and utilize you thought- reframing skills. 3. Utilize your support (communicate to support your distress and be open to support when they idenitify decompensation) 4. Use mindfulness coping skills. 5. Follow up with counseling to maintain gains and prevent decompensation - Appointments Appointments/Referrals to Other Services:: Appointment with psychiatrist Dr. Francois on 06/12/2017. Appt with outpatient therapist Marcie Lamb next week. Pt unsure of the exact date. Pt is also going to be attending an anxiety support group at [facility].
--- NOTE | 2017-06-05 16:01 | BH.SGPN_ITS ---
Service Group Progress Note - Session Psychotherapy Session #2 Date Open:: 05/16/17 Time Started:: 10:15 Time Stopped:: 11:15 Targeted Problem #:: 1 Type of Group:: Illness Management Goal of Group:: The goal of today?s group is to identify how emotions can impact our communication skills, and why it is important to be able to communicate in stressful situations. Client Response/Progress/Benefit:: Pt contributed to discussion and listened attentively to others. Pt reported when she is frustrated it can lead to power struggles, escalation, and ineffective communication. Pt connected with activity about importance of being able to manage emotions in the moment because unregulated emotions can lead to miscommunication and increased problems. Pt seemed to benefit from increased awareness of emotional regulation and impact emotions can have on ability to effectively communicate. Eye Contact:: Good Motor Activity:: Appropriate Appearance:: Neat Speech:: Appropriate Mood:: Anxious, Depressed Affect:: Constricted, Congruent Thoughts:: Linear, Logical, No evidence of hallucinations/delusions noted Staff Interventions:: Therapist led an experiential activity where group members worked together for a common goal, but with adaptations made on how members were able to communicate with one another. Therapist used open-ended questions to elicit group discussion about emotions which arose during activity , as well as identifying how emotions experienced impacted ability to communicate effectively with other group members. Psychotherapy Session #3 Date Open:: 05/16/17 Time Started:: 11:30 Time Stopped:: 12:20 Targeted Problem #:: 1 Type of Group:: Functional Skills Development Goal of Group:: The goal of today?s group was to increase awareness of different states of alertness attached to emotions and identifying healthy coping strategies for each state of alertness. Client Response/Progress/Benefit:: Pt engaged and active during discussion. Listened attentively to others. Pt identified various emotions that were appropriate for each of the zones of regulation. Pt reported she most often would be in the heightened emotions zone because often anxious, which she connects with how she eventually gets burned out when constantly in that zone. Pt seemed to benefit from group brainstorm of different coping skills that would be best to use based on what zone of alertness she is experiencing. Eye Contact:: Good Motor Activity:: Appropriate Appearance:: Casual Speech:: Appropriate Mood:: Anxious, Depressed Affect:: Constricted Thoughts:: Linear, Logical, No evidence of hallucinations/delusions noted Staff Interventions:: Therapist facilitated group by teaching about the 4 zones of different states of alertness and helping clients connect emotions to each zone based on state of alertness. Therapist assisted clients with identifying healthy coping strategies that would be best utilized based on the state of alertness. Therapist provided support by using active listening and providing feedback.
--- NOTE | 2017-07-18 14:36 | BH.SGPN_ITS ---
Service Group Progress Note - Session Psychotherapy Session #2 Date Open:: 05/24/17 Time Started:: 10:18 Time Stopped:: 11:15 Targeted Problem #:: 1 Type of Group:: Illness Management Goal of Group:: The goal of group was to increase understanding of goals and goal setting and practice a method of goal setting. Client Response/Progress/Benefit:: Pt contributed to discussion and listened attentively to others. Pt recognized it would be less overwhelming and more effective if she took her to-do list and turned the items into small SMART goals. Pt noted she can now see that it is important to celebrate the small successes because often she will reflect on what she didn't get done instead of reflecting on the positives. Pt seemed to benefit from learning about setting SMART goals and practicing setting small goals. Eye Contact:: Good Motor Activity:: Appropriate Appearance:: Neat Speech:: Soft Mood:: Euthymic Affect:: Flat Thoughts:: Linear, Logical, No evidence of hallucinations/delusions noted Staff Interventions:: Therapist facilitated group discussion about goals and goal setting. Therapist taught group the acronym SMART (Specific, Measurable, Achievable, Realistic, Timely) as a tool to help with goal setting. Therapist led the group in an activity to be used as a method of practicing goal setting. Therapist guided the group through the SMART acronym as group was participating in activity. Therapist assisted group members with connecting the importance of making small, realistic goals. Psychotherapy Session #3 Date Open:: 05/24/17 Time Started:: 11:25 Time Stopped:: 12:15 Targeted Problem #:: 1 Type of Group:: Functional Skills Development Goal of Group:: The goal of group was to identify a goal for the weekend, explore the potential barriers to achieving that set goal, and identify strategies to overcome barriers. Client Response/Progress/Benefit:: Pt engaged and active during group session. Pt reported her goal is to get 3 loads of laundry done today. Pt reported the benefit of completing this goal is decreased stress and will be able to enjoy her weekend better. Pt identified obstacles to include: energy, motivation, time , and excuses. Pt reported solutions to help her overcome identified barriers could be: music, taking breaks, getting most the laundry done when kids are at school, and doing something enjoyable while folding laundry. Pt seemed to benefit from identifying a small SMART goal with strategies to help her be successful. Eye Contact:: Good Motor Activity:: Appropriate Appearance:: Neat Speech:: Soft Mood:: Euthymic Affect:: Congruent Thoughts:: Linear, Logical, No evidence of hallucinations/delusions noted Staff Interventions:: Therapist facilitated group activity in which group members identified a goal to work on over the next week. Therapist asked group members to identify barriers to achieving identified goal and strategies to help them achieve their goal. Therapist led group in processing their goal maps , assisting clients with establishing SMART goals. Therapist provided support by using reflective listening.
--- NOTE | 2017-07-18 14:48 | BH.SGPN_ITS ---
Service Group Progress Note - Session Psychotherapy Session #2 Date Open:: 05/28/17 Time Started:: 10:10 Time Stopped:: 11:05 Targeted Problem #:: 1 Type of Group:: Illness Management Goal of Group:: To increase self-awareness of current reality in regards to mental wellness and desired mental wellness. Client Response/Progress/Benefit:: Client active and engaged througout session, contributing to discussion and listening to others. Client reported other's judgements of her soemtimes becomes an obstacle in her that she has to overcome , recognized often times she puts more obstacles in front of herself compared to others. Client identified in her current reality she is feeling blessed because things are getting better, but reported she is still off roading because there are a lot of things she has to overcome. Client shared her desired reality is to have more stability with clear goals and progress. Client seemed to benefit from identifying her desired reality. Eye Contact:: Good Motor Activity:: Appropriate Appearance:: Casual Speech:: Appropriate Mood:: Euthymic Affect:: Constricted Thoughts:: Linear, Logical, No evidence of hallucinations/delusions noted Staff Interventions:: Therapist facilitated group discussion about current reality in regards to mental health. Client provided each group member a piece of paper and asked them to draw their current reality. Therapist led the processing of each group members drawing. Therapist provided each group member with a second piece of paper and asked clients to draw desired mental wellness. Therapist processed each group members drawing, helping clients connect the two realities. Psychotherapy Session #3 Date Open:: 05/28/17 Time Started:: 11:15 Time Stopped:: 12:05 Targeted Problem #:: 1 Type of Group:: Functional Skills Development Goal of Group:: To identify obstacles in clients path to mental wellness and identify strategies to help one overcome various obstacles. Client Response/Progress/Benefit:: Client contributed positively to discussion and listened attentively to others. Client identified personal obstacles that get in the way from acheiving desired reality include: negative thoughts, discouraging results, feeling overwhelmed, numbness, decreased pleasure, and fatigue. Client identified using her coping skills, supports, and setting SMART goals as strateiges that can help her overcome current and future obstacles. Client seemed to benefit from increased awareness of her obstacles and identifying strategies to overcome obstacles. Eye Contact:: Good Motor Activity:: Appropriate Appearance:: Casual Speech:: Appropriate Mood:: Euthymic Affect:: Congruent Thoughts:: Linear, Logical, No evidence of hallucinations/delusions noted Staff Interventions:: Therapist facilitated group discussion about obstacles and the hesitations of overcoming obstacles. Client led group in activity that gave client the opportunity to problem solve various obstacles throughout. Therapist helped clients connect how each obstacle is preventing them from achieving their desired reality. Therapist provided support by using reflective listening and providing feedback.
== END 2017-06-01 14:00 | disposition home or self-care (01) ==
LOC: BHIOP 09:00
PROVIDERS: Visit Provider Psychiatry & Neurology Psychiatry
DX: F31.2 Bipolar disorder, current episode manic severe with psychotic features (principal); F41.9 Anxiety disorder, unspecified
CPT/HCPCS: H0035; 90834; 90837; 90847; 90853